=== PATIENT | female | born 1940 | race Caucasian/White ===

== ENCOUNTER → 2016-09-24 | Outpatient (CLI) | payer MEDICARE, OTHER ==
[~2016-09-24] MED LIST: VALS40TA2 PO
--- NOTE | 2016-09-24 16:53 | RADRPT ---
PROCEDURE: Right knee radiographs. CLINICAL INDICATION: Right knee pain. TECHNIQUE: Three views. Weight bearing. Frontal, lateral, and patellar view. COMPARISON: None. FINDINGS: There is no fracture or dislocation. The soft tissues are normal. There are moderate degenerative changes with small osteophytes and lateral joint compartment narrowi ng. There is no deformity. There is patella nawaf. There is no lytic or blastic lesion. There is no radiopaque foreign body. IMPRESSION: 1. Moderate degenerative change. 2. Patella nawaf. 3. Otherwise unremarkable study. RPTAT: QQ .Galdino Scott MD, MD Date Time Electronically viewed and signed by .Galdino Scott MD, on 09/24/2016 16:53 .R/
--- NOTE | 2016-09-25 02:44 | HKNOTE ---
DATE OF SERVICE: 09/24/2016 NEW CONDITION MAIN COMPLAINT: Pain in the right knee. HISTORY OF MAIN COMPLAINT: The patient is a 76-year-old female who has had pain in her right knee f or several years. She has been diagnosed as having severe arthritis of the right knee and has been told that she will need to have a knee replacement operation. She underwent a right total hip replacement by me in 2013. She is extremely pleased with the result s of the surgery. The patient has had multiple cortisone injections into the knee in the past. PRESENT COMPLAINTS: The knee does not feel unstable. Occasionally, it seems to lock when she is in bed at night. There is no swelling. On a level surface, she cannot walk more than about 2 blocks without stopping. She does not use a walking aid (too vain). She limps some of the time. She is u nable to clip her toenails on her right foot. PAST ORTHOPEDIC HISTORY: PREVIOUS ORTHOPEDIC OPERATION: Right total hip replacement, 2013, perfect result. PRIOR CORTISONE INTAKE: Four cortisone injections into her right knee in total so far. ALCOHOL INTAKE: One alcoholic beverage a day. OTHER JOINT PROBLEMS: Right elbow pain. BLOOD TESTS FOR ARTHRITIS: None. PRIOR INJURIES TO HIPS OR KNEES: None. 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 PAST SURGICAL HISTORY: 1. Right hip replacement by Dr. Leo, 2013. 2. Appendectomy in 1956. 3. Benign cyst removed from the left breast, 1975. 4. Cervical cone, 1973. PAST MEDICAL HISTORY: 1. Hypertension. 2. Brain aneurysm. 3. Acid reflux. 4. Mini stroke x1. ALLERGIES: 1. SULFA. 2. BACTRIM UPSET HER STOMACH. MEDICATIONS: 1. Valsartan 80 mg a day for hypertension. 2. Myrbetriq 50 mg once a day for incontinence. 3. Heal and Smooth 3 times a day for arthritis. 4. Omeprazole intermittently for acid reflux. FAMILY HISTORY: Father at 64 from heart problems. Mother at 76 from cancer. SYSTEMS REVIEW: Age related failing vision. Heartburn. History of cancer of the cervix of the [facility] at the age of 25. Gait disturbance. Right knee feels "wobbly". Hypertension, mini stroke, sli ght cardiac murmur, hemorrhoids. HABITS: The patient smoked from 15 to 40 years. She has not smoked in 36 years. Alcohol intake 1 per day. PRIMARY CARE PHYSICIAN: Dr. Chappell, [facility]. PHYSICAL EXAMINATION: GENERAL: A youthful and fit-looking 76-year-old female. She walks without a walking aid. She has a slight limp. VITAL SIGNS: Height 5 feet 6 inches, weight refused to say, blood pressure 135/65, temperature 98.0 . HIPS: Both hips have full range of motion without pain. No tenderness anywhere around either hip. RIGHT KNEE: The right knee shows valgus alignment. Active and passive extension is 0 degrees. Act casey and passive flexion is 105 degrees (painful). The medial and lateral collateral ligaments and c ruciate ligaments are intact. Natalie test is negative. There is no tenderness, scarring, or cysts . 2+ effusion, 6+ crepitus in the knee and the patella. The patella tracks normally. There is no tenderness on the articular surface of the patella or in the patellar groove. The Q angle is normal . IMAGING: Plain x-rays of the right knee obtained today at the [facility] were re viewed (3 views). These show severe tmor-tb-rbgu degenerative osteoarthritis affecting mainly the l ateral compartment and patellofemoral joint. Varus alignment. Moderate osteoporosis. DIAGNOSES: 1. Severe symptomatic degenerative osteoarthritis of the right knee. 2. Status post right total hip replacement. 3. Hypertension. 4. Acid reflux. 5. History of cervical cancer. 6. ALLERGIC TO SULFA AND BACTRIM. MANAGEMENT: The patient is advised that sooner or later she will need to have a right knee replacem ent operation. We should at least try another cortisone injection. She has not had a cortisone inj ection into the knee for more than a year. In any case, she is going on a vacation to [place] in a w [place]'s time. I did not spend any time discussing knee replacement surgery with her. Under sterile conditions, given injection of 2 mL of Kenalog and 6 mL of 2% lidocaine into the knee. She will decide after she gets back from [place] whether or not the cortisone has given her much re lief. Dictated By: WILLOW GONZALEZ/TRENT Conf#: [id number] [facility]#: [id number]
== END | disposition home or self-care (01) ==
LOC: HKI 15:33
DX: M17.11 Unilateral primary osteoarthritis, right knee (principal); Z96.641 Presence of right artificial hip joint; I10 Essential (primary) hypertension; K21.9 Gastro-esophageal reflux disease without esophagitis; Z85.41 Personal history of malignant neoplasm of cervix uteri; Z88.2 Allergy status to sulfonamides
CPT/HCPCS: 20610; 73562; G0463

== ENCOUNTER → 2016-10-22 | Outpatient (CLI) | payer MEDICARE, OTHER ==
[~2016-10-22] MED LIST changes: +ATOR10TA65 PO; +MIRA50TA PO; +VALS80TA2 PO
--- NOTE | 2016-10-22 18:24 | HKNOTE ---
DATE OF SERVICE: 10/22/2016 The patient comes in for preoperative evaluation. She is scheduled to have a right total knee repla cement on 10/27/2016. Seen on 10/22/2016, scheduled for total knee replacement on 10/27/2016. Has been cleared for surgery by Dr. Jamison Hernadez. She has not given any blood for autotransfusio n. She understands the risks associated with using hospital blood. She is agreeable to using [facility] blood if needed. Numerous questions were asked and answered. Note that she has previously undergone a hip replacement performed by me. The surgery was totally u neventful, and there were no complications of any kind, and she currently maintains totally satisfie d with the result of her hip surgery. Dictated By: WILLOW GONZALEZ/TRENT Conf#: [id number] DID#: [id number]
== END | disposition home or self-care (01) ==
LOC: HKI 14:36
DX: Z01.818 Encounter for other preprocedural examination (principal); M17.11 Unilateral primary osteoarthritis, right knee
CPT/HCPCS: G0463

== ENCOUNTER 2016-10-27 05:30 | Inpatient (IN) | payer MEDICARE, OTHER ==
--- NOTE | 2016-10-26 09:16 | PREOPHP ---
DATE OF ADMISSION: 10/27/2016 PREOPERATIVE INTERNAL MEDICINE CONSULTATION MEDICAL HISTORY AND PHYSICAL: Patient to have surgery with Dr. Harlan Leo on 10/27/2016. REASON FOR CONSULTATION: Consultation requested by Dr. Harlan Leo for medical evaluation and clearance of a 76-year-old woman about to have surgery. Thank you, Dr. Leo, for allowing us to participate in the care of this patient. HISTORY OF PRESENT ILLNESS: Dimple Guajardo is a 76-year-old woman with issues with her joints, in particular her right knee at this particular point in time. She is currently being admitted for correction of the above problem. She has had a total hip replacement on the right side as well, had appendectomy and has had a cone biopsy of the cervix and had a benign lump removed from one of her breasts. Other than that, she has been relatively healthy, She had a mild mini stroke with no obvious residual.,She is currently being treated for the followin. Chronic bladder issues. 2. Hypertension. 3. Hyperlipidemia. MEDICATIONS: She is currently taking the following medications: 1. Myrbetriq 50 mg a day. 2. Baby aspirin 81 mg, which she has stopped. 3. Diovan 80 mg a day. 4. Atorvastatin 10 mg a day. ALLERGIES: SHE IS ALLERGIC TO SULFA and SOME ENVIRONMENTAL ALLERGIES WELL. GENERAL HEALTH: Has been good. SOCIAL HISTORY: The patient is , has no children. She does not smoke, quit 35 years ago. Alcohol socially. Does drink tea, no coffee and has no difficulty sleeping at night. FAMILY HISTORY: Father at age 67 of an [place]. Mother in her 70s, lung cancer , one brother has had coronary artery bypass surgery. There is a family history of heart and cancer, no diabetes, hypertension, stroke or thyroid issues to her knowledge. REVIEW OF SYSTEMS HEENT: Periodic sinus headaches. CARDIORESPIRATORY: Denies any chest pain or shortness of breath. GASTROINTESTINAL: No melena or hematemesis. GENITOURINARY: No urgency or frequency. GYNECOLOGIC: Up to date her with her information resource consultant, Dr. Ulysses Molina, post- menopause. MUSCULOSKELETAL: Positive for right knee pain. NEUROPSYCHIATRIC: Unremarkable. GENERAL HEALTH: As above. PHYSICAL EXAMINATION: VITAL SIGNS: The patient's blood pressure was 130/70, pulse was 80 and regular , respirations were 18, temperature 98, height 66 inches, weight 178 pounds. GENERAL: The patient was noted to be a well-developed, well-nourished female, alert and cooperative, in no apparent acute distress, oriented to time, place, and person. HEAD, EARS, EYES, NOSE AND THROAT: Head was atraumatic. Eyes: Pupils were equal, reactive to light and accommodation. Fundi were benign. Tympanic membranes were unremarkable. Nose was negative. Mouth was unremarkable. Fair oral hygiene was present. NECK: Supple without any rigidity. Trachea was midline. Thyroid was unremarkable. Neck veins were flat. Carotid pulses were equal. No bruits were heard. BACK: Unremarkable. CHEST: Symmetrical. BREASTS AND AXILLARY: No obvious masses. A full exam was not done. LUNGS: Clear to percussion and auscultation. HEART: PMI is fifth intercostal space at the midclavicular line. A regular sinus rhythm was noted, no significant murmurs, rubs, or gallops being elicited. ABDOMEN: Soft, good bowel sounds were noted. No significant organomegaly, masses, or tenderness. GENITALIA: Normal female external genitalia. PELVIC/RECTAL: Per information resource consultant, up to date. EXTREMITIES: Not revealing clubbing, edema or cyanosis. Scar was noted. At the right hip area, a scar from right hip surgery was noted. Peripheral pulses were physiologic. SKIN: Moist and warm without any eruptions. No gross lymphadenopathy was noted. NEUROLOGIC: Grossly intact. IMPRESSION: 1. Degenerative joint disease, right knee, status post total hip replacement on the right. 2. Degenerative joint disease. 3. Hypertension. 4. Hyperlipidemia. 5. Overactive bladder. 6. Stable health. DISCUSSION: Review of laboratory and other data revealed the following: The patient's chemistry panel revealed normal electrolytes. Random glucose was 115 , BUN was 29. However, creatinine was normal at 1. Liver function tests were normal save for mild elevation of alkaline phosphatase with normal liver functions. Serum iron was minimally low at 54, TSH and free T4, CBC, sed rate , UA, PT and PTT were normal as well. The patient's EKG was absolutely normal, as was her chest x-ray. Dr. Leo, I see no contraindication in this patient undergoing current proposed surgery and desired form of anesthesia. I will be happy to follow her along with you during her stay at [facility]. Thank you again, Dr. Leo, for allowing us to participate in the care of this patient. Dictated By: EDY COLLINS/TRENT Conf#: [id number] DID#: [id number] MTDD
[~2016-10-27] VITALS: Ht 167.6 cm; Wt 78.0 kg
[2016-10-27] VITALS (28 sets, daily range): BP systolic 102–135; BP diastolic 46–60; PULSE 68–92; RESP 10–20; Ht 167.6 cm; Wt 78.0 kg
[~2016-10-27 05:30] MED LIST changes: -ATOR10TA65 PO; +BACITRACIN 50000 UNITS INJ IRR ONE; +BUPIVACAINE 0.25%/EPI (SDV) 30 ML INJ INJ ONE; +METHYLENE BLUE 1% 10 ML INJ TOP ONE; -MIRA50TA PO; +POLYMYXIN B 500000 UNIT INJ IRR ONE; +ROPIVACAINE 0.2% 100ML BAG INJ ONE; +TOBRAMYCIN 1.2 GM POWDER TOP ONE; -VALS80TA2 PO; +VANCOMYCIN 1 GM INJ IRR ONE
[2016-10-27] MEDS ORDERED: ONDANSETRON 4 MG INJ IV ONE (06:00)
[2016-10-27] MEDS ORDERED: LACTATED RINGER'S 1,000 ML IV* SCH (06:00)
[2016-10-27] MEDS ORDERED: oxyCODONE (CR) 10 MG TAB [oxyCONTIN] PO ONE (06:00)
[2016-10-27] MEDS ORDERED: TRANEXAMIC ACID IRR SCH ×2 (06:00)
[2016-10-27] MEDS ORDERED: DEXAMETHASONE 4 MG/ML 1 ML INJ IV ONE (06:00)
[2016-10-27] MEDS ORDERED: SOD CHLORIDE 0.9% IVPB ONE (06:00)
[2016-10-27] MEDS ORDERED: TRANEXAMIC ACID IVPB ONE (06:00)
[2016-10-27] MEDS ORDERED: SOD CHLORIDE 0.9% IRR SCH ×2 (06:00)
[2016-10-27] MEDS ORDERED: VANCOMYCIN 1 GM (PMX) 250 ML IVPB ONE (06:00)
[2016-10-27] MEDS ORDERED: LANSOPRAZOLE 30 MG CAP PO ONE (06:00)
[2016-10-27] MEDS ORDERED: ACETAMINOPHEN 1000MG/100ML IV 100 ML IVPB ONE (06:00)
[2016-10-27] MEDS ORDERED: KNEE PAIN COCKTAIL VANCO INJ SCH ×12 (06:00)
[2016-10-27] MEDS ORDERED: LIDOCAINE 2% (SDV) 5 ML INJ ONE (06:20)
[2016-10-27] MEDS ORDERED: PROPOFOL 20 ML ONE (06:21)
[2016-10-27] MEDS ORDERED: NEOSTIGMINE 3 MG/3 ML SYRINGE ONE (06:21)
[2016-10-27] MEDS ORDERED: GLYCOPYRROLATE 0.4 MG INJ ONE (06:21)
[2016-10-27] MEDS ORDERED: FENTAnyl 50 MCG/ML VIAL ONE (06:21)
[2016-10-27] MEDS ORDERED: MIDAZOLAM 1 MG/ML 2 ML INJ ONE (06:21)
[2016-10-27] MEDS ORDERED: ROCURONIUM 50 MG INJ ONE (06:21)
[2016-10-27] MEDS ORDERED: DEXAMETHASONE 4 MG/ML 1 ML INJ ONE (06:21)
[2016-10-27] MEDS ORDERED: LIDOCAINE 2%/EPI 30 ML INJ ONE (06:22)
[2016-10-27] MEDS ORDERED: ONDANSETRON 4 MG INJ ONE (06:22)
[2016-10-27] MEDS ORDERED: OXYCODONE/ACETAMINOPHEN (5/325) TAB PO PRN ×4 (06:30→11:56)
[2016-10-27] MEDS ORDERED: LABETALOL HCL 20MG INJ IV PRN ×2 (06:30→11:57)
[2016-10-27] MEDS ORDERED: MIDAZOLAM 1 MG/ML 2 ML INJ IV PRN ×2 (06:30→12:00)
[2016-10-27] MEDS ORDERED: hydrALAzine 20 MG INJ IV PRN ×2 (06:30→11:58)
[2016-10-27] MEDS ORDERED: HYDROmorphONE (0.2 MG/ML) 10ML SYG IV PRN ×5 (06:30→11:48)
[2016-10-27] MEDS ORDERED: MEPERIDINE 25 MG INJ IV PRN ×2 (06:30→11:59)
[2016-10-27] MEDS ORDERED: ATROPINE 1 MG/10 ML SYRINGE IV PRN (06:30)
[2016-10-27] MEDS ORDERED: ONDANSETRON 4 MG INJ IV PRN ×2 (06:30→11:56)
[2016-10-27] MEDS ORDERED: DIPHENHYDRAMINE 50 MG INJ IV PRN ×2 (06:30→12:00)
[2016-10-27] MEDS ORDERED: EPHEDrine SULFATE 50 MG/5 ML SYG IV PRN ×2 (06:30→11:58)
[2016-10-27] MEDS ORDERED: morphine (1 MG/ML) 10ML SYRINGE IV PRN ×6 (06:30→11:47)
[2016-10-27] MEDS ORDERED: FENTAnyl 50 MCG/ML VIAL IV PRN ×4 (06:30→11:54)
[2016-10-27] MEDS ORDERED: ATOR10TA65 PO (06:52)
[2016-10-27] MEDS ORDERED: MIRA50TA PO (06:52)
[2016-10-27] MEDS ORDERED: VALS80TA2 PO (06:52)
[2016-10-27] MEDS ORDERED: SUCCINYLCHOLINE CHLORIDE 100 MG/5 ML SYG IV ONE (07:23)
[2016-10-27] MEDS ORDERED: OCULAR LUBRICANT 3.5 GM OPH OINT ONE (07:34)
[2016-10-27] MEDS ORDERED: TOBRAMYCIN 1.2 GM POWDER ONE ×2 (07:56→10:19)
[2016-10-27] MEDS ORDERED: FUROSEMIDE 20 MG INJ ONE (10:55)
--- NOTE | 2016-10-27 11:24 | HPN ---
Date/Time of Note Date/Time of Note DATE: 10/27/16 TIME: 11:24 Interval H&P Admission Note Pt. seen H&P reviewed: No system changes BE SERNA PA-C Oct 27, 2016 11:24
[2016-10-27] MEDS ORDERED: COUMADIN NOTE XX SCH (11:30)
[2016-10-27] MEDS ORDERED: DOCUSATE SODIUM 100 MG CAP PO ONE (11:30)
[2016-10-27] MEDS ORDERED: oxyCODONE 5 MG TAB PO PRN (11:30)
[2016-10-27] MEDS ORDERED: SENNA/DOCUSATE NA (8.6MG/50MG) TAB PO PRN (11:30)
[2016-10-27] MEDS ORDERED: MEPERIDINE 10 MG/ML 30 ML PCA IV PRN (11:30)
[2016-10-27] MEDS ORDERED: HYDROmorphONE 0.2 MG/ML PCA IV PRN (11:30)
[2016-10-27] MEDS ORDERED: ASPIRIN (EC) 325 MG TAB PO ONE (11:30)
[2016-10-27] MEDS ORDERED: MAGNESIUM HYDROXIDE 30ML CUP PO PRN (11:30)
[2016-10-27] MEDS ORDERED: BETHANECHOL 25 MG TAB PO PRN (11:30)
[2016-10-27] MEDS ORDERED: DIPHENHYDRAMINE 50 MG INJ IM PRN (11:30)
[2016-10-27] MEDS ORDERED: BISACODYL 10 MG SUPP PR PRN (11:30)
[2016-10-27] MEDS ORDERED: NA PHOSPHATE/BIPHOS 133 ML ENEMA PR PRN (11:30)
[2016-10-27] MEDS ORDERED: NALOXONE (0.4 MG/ML) INJ IV PRN (11:30)
[2016-10-27] MEDS ORDERED: HYDROmorphONE (0.2 MG/ML) 10ML SYG IV ONE (11:45)
[2016-10-27] MEDS: ACETAMINOPHEN 1000MG/100ML IV 100 ML IVPB SCH ×2 (12:10→19:29)
[2016-10-27] MEDS: ONDANSETRON 4 MG INJ IV SCH ×3 (12:11→23:13)
[2016-10-27] MEDS: HYDROmorphONE (0.2 MG/ML) 10ML SYG IV PRN ×2 (12:24→12:46)
[2016-10-27] MEDS: CEFAZOLIN 1 GM/50 ML (PMX) 50 ML IVPB SCH ×2 (12:31→18:57)
--- NOTE | 2016-10-27 12:58 | OPR ---
DATE OF OPERATION: 10/27/2016 SURGEON: Herbert. Felipa MD COCONUT COOKER: ISMÓN Jmail. ANESTHESIOLOGIST: Dr. Cook. PREOPERATIVE DIAGNOSIS: Severe degenerative osteoarthritis of the right knee. POSTOPERATIVE DIAGNOSIS: Severe degenerative osteoarthritis of the right knee. OPERATION PERFORMED: Right total knee replacement (arthroplasty of the knee, condylar plateau media l and lateral compartments with patella resurfacing, CPT 27378). FINDINGS AT SURGERY: The patient was found to have extremely severe arthritis of the lateral compar tment of the knee. There was a very deep indentation of the lateral tibial plateau. There was mini mal normal articular cartilage visible anywhere. JUSTIFICATION FOR SURGERY: The knee was found to have end-stage osteoarthritis. The patient is a v mara active 76-year-old whose lifestyle is markedly affected by the arthritic knee. An extensive cou rse of conservative care has been tried prior to embarking on the knee replacement operation. There can be no reasonable expectation that any further conservative treatment will make any improvement to this patient's pain level and lifestyle. The risks and complications of the surgery were discuss ed with the patient at the preoperative visit as well as the risks and possible complications of blo od transfusion using hospital blood. The patient is agreeable to using hospital blood if needed. DESCRIPTION OF PROCEDURE: The patient was given intravenous antibiotics 1 hour prior to surgery. A n epidural anesthetic was initiated in the ICU holding area. The patient was taken to the operating room and given a light general anesthetic. The leg, foot, and ankle were prepared and draped in th e usual sterile fashion. The center of the ankle was marked at the midpoint between the 2 malleoli with a sterile marking pen. A tourniquet around the thigh was inflated to 225 mmHg after the leg frank d been exsanguinated using an Esmarch bandage. The tourniquet was inflated at the initiation of pro cedure for a short period and was then again reinflated at the time of cementing the components part s. The total tourniquet time was 56 minutes. A longitudinal incision was made over the anterior aspect of the knee. The incision extended from t he tibial tubercle to a point just above the patella. The medial capsule was exposed by sharp and b luis dissection, and was incised 1/4 inch medial to the patella. A marking stitch was set on each s agapito of the incision at the midpoint of the capsule so as to enable accurate reapproximation at the e nd of the operation. A vastus split was made in the vastus medialis extending from the superior duncan e of the patella for approximately 5 cm between the line with the muscle fibers. The ends of the mu scle split at the patella were marked with a marking stitch on each side for later accurate reapprox imation. The patella was reflected laterally and osteophytes around the rim of the patella were rem slava. Osteophytes along the lateral femoral condyle were removed so as to facilitate lateral reflec tion of the patella. Posteromedial osteophytes were removed on the lateral side as well, so as to f ree up the lateral collateral ligament. Medial femoral osteophytes and posteromedial femoral osteop hytes were also removed at this time. This allowed for the knee to be brought into a more normal al ignment. A segment of bone was cut from the articular surface of the patella using a caliper to det ermine the exact thickness to be removed. The remaining thickness of the patella was 16.5 mm. The knee was flexed, and the patella was displaced laterally without eversion. Osteophytes in the femor al notch were removed. The remnants of the medial and lateral menisci were excised and the cruciate ligaments were excised. The medial collateral ligament was elevated as an osteo-periosteal flap fr om the proximal tibia. The distal end of the medial collateral ligament remained attached to the ti ed throughout the operation. The tibia was retracted forward with Hohmann retractor, inserted post erior to the midpoint of the proximal tibia. The OrthAlign jig was now set in place in such a way a s to align longitudinally with the anterior tibial spine, with the junction of the middle and medial 2/3 of the patella tendon, and with the posterior intercondylar eminence of the tibia. An AP and l ateral x-ray was obtained with the alignment jig in place. This showed that the alignment was satis factory after some slight adjustments were made. The posterior slope of the tibia was set at 6 degr ees. The tibial cutting block was attached to the proximal tibia with 2 Steinmann pins. An externa l alignment justyna was placed on the cutting block to confirm the alignment of the cutting block. An A ngel Wing feeler gauge was now placed on the superior aspect of the cutting block to further confirm the posterior slope of the tibia and the depth of the cut to be made. An oscillating saw was used to remove an appropriate amount of bone from the proximal tibia with the healthy side being used to measure the cutting depth. The lateral femoral condyle of the distal femur was measured to determin e the appropriate size for the femoral component. The anterior condyle of the femur was partially r emoved with a rongeur. A medium-sized cutting block was attached to the distal femur with 2 Steinma nn pins through the pin holes in the block. The external alignment jig of this cutting block was li colin up with the anterior surface of the femur and a central intercondylar hole for the intramedullar y justyna was drilled through the hole in the alignment block. The block was removed. A long Waterpik nozzle was used to flush fat from the intramedullary canal. The appropriately sized cutting block w as now attached to the femur by means of an intramedullary justyna. The linking guide was inserted into the slot in the base of the femoral cutting block with the knee set at 90 degrees of flexion and wi th the linking guide set flush with the proximal tibial cut in order to set the appropriate rotation al alignment on the femoral cutting block. Ligament balance was checked at this point and was found to be very satisfactory. Once the rotational alignment had been determined, and the ligaments foun d to be balanced, the femoral cutting block was secured to the distal femur with 2 Steinmann pins. The anterior and posterior cuts of the distal femur were made off the femoral cutting block. The cu tting block was removed and a spacer block was used to measure the flexion gap which was found to be 12.5 mm. The same spacer block size without the femoral element was used with the leg in extension to determi ne the amount of distal femur to be removed in the transverse plane. A 5-degree distal cutting bloc k was now set on the femoral intramedullary justyna, and the justyna was inserted into the intramedullary ca nal. The appropriate amount of bone to be removed was determined. The femoral cutting block was pi nned to the anterior surface of the femur with 2 Steinmann pins. The appropriate amount of bone was resected off the distal femur to give an extension gap equal to the thickness of the flexion gap. The cut needed to be repeated after initial cut in order to produce an extension gap the same size a s the flexion gap. By using the appropriate cutting blocks, the rest of the femoral cuts were made. The femoral trial component was installed and was found to fit perfectly. The femoral trial component was removed. T he proximal tibia was sized, and the appropriate tibial tray selected. The central fixation hole in the tibia was made using the tibial tray template and the appropriate instruments. The femoral and tibial trials and the trial tibial insert were installed, and the patella was prepared to accept th e 32 mm patellar dome. The trial components were all removed. The tourniquet was inflated. Soft t issues around the knee, especially the posterior capsule, were injected with a mixture of Naropin, T oradol, morphine, and clonidine. The cut surfaces of the bones were cleaned with pulsatile Water Je t lavage and thoroughly dried. Sclerotic bone surfaces were drilled with a 1/8-inch drill. The tib ial trial component was installed with methyl methacrylate cement followed by the femoral component and finally the patellar component. Cement was used on all 3 components. The cement was finger pac ked into the cut surfaces of the bone and pressurized with a rubber dam in order to get good interdi gitation of the cement into the bone. A lateral x-ray of the knee was obtained while the cement was hardening with the anticipated appropriate spacer trial in place. Once the cement was hard, all ex traneous cement was removed. The cut edges of the medial capsule were held together at the midpoint with a towel clip, and the knee was put through a full range of motion. The patella was found to t rack satisfactorily. A lateral release was not required. At this point, the patella was found to t rack very well in the patellar groove of the femoral component. The knee was frequently irrigated with normal saline containing antibiotics with pulsatile lavage th roughout the entire operation as a prophylactic measure against infection. Once the cement was hard , the tourniquet was released. Bleeding points were cauterized. The total tourniquet time was 56 m inutes. The patient's vital signs remained stable throughout the operation. The permanent rotating bearing was installed. Superficial and deep Hemovac drains were set in place . The wound was closed using interrupted Vicryl on the capsule with FiberWire used at strategic poi nts such as the attachment of the distal ends of the vastus medialis at the split, and the tibial te ndon was also attached to the osteo-periosteal flap with FiberWire. The rest of the medial capsule was closed with interrupted Vicryl. A subcuticular stitch was inserted and cristina were used on the skin. The usual sterile dressings were applied. A Dominick-Gaytan compression dressing was applied a fter a sterile cooling pad had been set in place against the deep tissues by sterile cast padding. The patient's condition at the end of the procedure was satisfactory. Vital signs remained stable t hroughout the operation. The patient returned to the recovery room in stable condition. X-rays wer e obtained in the recovery room. Calf pumps were applied to both legs in the operating room. There were no problems or complications as far as we know. The sponge and instrument counts were correct . COMPONENT INFORMATION: KNEE IMPLANT TYPE: LCS. FEMORAL COMPONENT SIZE: Standard plus. TIBIAL COMPONENT SIZE: 2.5. PATELLAR COMPONENT SIZE: 32 mm patellar dome plastic insert rotating platform LCS 12.5 mm standard plus posterior stabilized. 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 TOTAL TOURNIQUET TIME: 56 minutes. TOTAL BLOOD LOSS: Less than 150 mL. Dictated By: WILLOW GONZALEZ/TRENT Conf#: [id number] DID#: [id number]
--- NOTE | 2016-10-27 13:29 | CONS ---
DATE OF ADMISSION: 10/27/2016 DATE OF CONSULTATION: 10/27/2016 POSTOPERATIVE CONSULT FOLLOWUP The patient had surgery with Dr. Harlan Leo on 10/27/2016. The patient is seen in recovery room postoperatively, arousable, recognized me, knew my name, quite alert and complaining of some pain in her knee. PHYSICAL EXAMINATION: VITAL SIGNS: Revealed the following: Blood pressure was 112/49, pulse was 80 and regular, respirat ions were 18, temperature was 98.2, O2 saturation 97% on room air. HEENT: Unremarkable. LUNGS: Clear. HEART: Revealed a regular rhythm. ABDOMEN: Unremarkable. IMPRESSION: 1. Status post total knee replacement on the right for degenerative joint disease. 2. Degenerative joint disease. 3. Hypertension. 4. Hyperlipidemia. 5. Overactive bladder. DISCUSSION: The patient's vital signs are stable postoperatively. The patient's awaiting room assi gnment. We will continue her preoperative medications at this point. We will renew her medicines s tarting tomorrow. Condition postoperative is stable. Thank you again, Dr. Leo, for allowing us to participate in the care of this patient. Dictated By: EDY POWERS MD SS/NTS Conf#: [id number] DID#: [id number]
--- NOTE | 2016-10-27 14:08 | RADRPT ---
PROCEDURE: XR Knee. CLINICAL INDICATION: Status post right knee replacement TECHNIQUE: AP and lateral view of the right knee were obtained. The images reviewed on a PACS wor kstation. COMPARISON: September 24, 2016 FINDINGS: Complete right knee replacement is identified. Prosthetic components are in appropriate position an d alignment. No fractures or destructive lesions are observed. Surgical drains are seen in the knee . Soft tissue air is procedural in nature. IMPRESSION: Status post right knee replacement. Prosthetic components are in appropriate position and alignment . RPTAT: AA .Juwan Montes MD, MD Date Time Electronically viewed and signed by .Juwan Montes MD, on 10/27/2016 14:07 .P/
[2016-10-27] MEDS ORDERED: TRANEXAMIC ACID 780 MG in SOD CHLORIDE 0.9% 100 ML IVPB ONE ×2 (14:30→17:30)
--- NOTE | 2016-10-27 14:34 | RADRPT ---
PROCEDURE: XR Knee 1 Views. CLINICAL INDICATION: Right knee pain. TECHNIQUE: Troponin lateral view of the right knee was obtained. The images reviewed on a PACS [email or web address]. COMPARISON: September 24, 2016 FINDINGS: Intraoperative prosthetic components of the right knee replacement appear in grossly appropriate pos ition. No destructive bony lesions are observed. IMPRESSION: Intraoperative right knee x-ray. Intraoperative components of the right knee replacement in grossly appropriate position. Please see procedure note for details. RPTAT: AA .Juwan Montes MD, Date Time Electronically viewed and signed by .Juwan Montes MD, on 10/27/2016 14:33 .P/
[2016-10-27] MEDS: DEXTROSE 5%-LR 1,000 ML IV SCH (16:21)
[2016-10-27] MEDS ORDERED: ARTIFICIAL TEARS 15 ML OPH BOTH EYES PRN (21:00)
[2016-10-27] MEDS: ATORVASTATIN 10 MG TAB PO SCH (21:00)
[2016-10-27] MEDS: OLOPATADINE 0.1% 5 ML OPH BOTH EYES SCH (21:12)
[2016-10-28] MEDS: DEXTROSE 5%-LR 1,000 ML IV SCH ×2 (00:03→11:10)
[2016-10-28] MEDS: oxyCODONE 5 MG TAB PO PRN ×3 (00:11→21:57)
[2016-10-28] MEDS: ZOLPIDEM 5 MG TAB PO PRN ×2 (02:13→23:50)
[2016-10-28] MEDS: ACETAMINOPHEN 1000MG/100ML IV 100 ML IVPB SCH ×3 (03:19→18:31)
[2016-10-28] MEDS: CEFAZOLIN 1 GM/50 ML (PMX) 50 ML IVPB SCH (04:08)
[2016-10-28] MEDS: ONDANSETRON 4 MG INJ IV SCH (05:30)
[2016-10-28] MEDS ORDERED: KETOROLAC 15 MG INJ INJ PRN (06:00)
[2016-10-28] MEDS ORDERED: BUPIVACAINE 0.25%/EPI (SDV) 30 ML INJ INJ PRN (06:00)
[2016-10-28 06:03] LABS: ADD SCAN DIFF NO
[2016-10-28 06:16] LABS: ABNORMAL IP MESSAGE 1; BASOPHILS % 0.1 % (0.0-2.0); HEMATOCRIT 32.3 % (37.0-47.0); HEMOGLOBIN 10.5 g/dl (12.0-16.0); LYMPHOCYTES % 7.4 % (15.0-51.0); MEAN CORPUSCULAR HEMOGLOBIN 28.2 pg (29.0-33.0); MEAN CORPUSCULAR HGB CONC 32.5 g/dl (32.0-37.0); MEAN CORPUSCULAR VOLUME 86.6 fl (82.0-101.0); MEAN PLATELET VOLUME 13.5 fl (7.4-10.4); MONOCYTE # 1.2 10^3/ul (0.3-0.9); MONOCYTES % 8.6 % (0.0-11.0); NEUTROPHIL # 11.6 10^3/ul (1.6-7.5); NEUTROPHILS % 83.4 % (39.0-77.0); PLATELET COUNT 176 10^3/UL (140-415); RED BLOOD COUNT 3.73 10^6/ul (4.20-5.40); RED CELL DISTRIBUTION WIDTH 15.5 % (11.5-14.5); WHITE BLOOD COUNT 13.9 10^3/ul (4.8-10.8)
[2016-10-28] MEDS: DEXAMETHASONE 4 MG/ML 1 ML INJ IV SCH (06:37)
[2016-10-28 06:49] LABS: ALBUMIN 3.4 g/dl (3.3-4.9); ALBUMIN/GLOBULIN RATIO 1.7; BILIRUBIN,INDIRECT 0.1 mg/dl (0-1.1); BILIRUBIN,TOTAL 0.1 mg/dl (0.2-1.3); CALCIUM 8.9 mg/dl (8.4-10.2); CREATININE 1.21 mg/dl (0.44-1.00); POTASSIUM 4.2 mmol/L (3.5-5.1); TOTAL PROTEIN 5.4 g/dl (6.1-8.1)
[2016-10-28 07:03] LABS: ADD UMIC NO; UR ASCORBIC ACID NEGATIVE (NEGATIVE); UR BILIRUBIN (Dip) NEGATIVE (NEGATIVE); UR BLOOD (Dip) NEGATIVE (NEGATIVE); UR CLARITY CLEAR (CLEAR); UR COLOR STRAW (YELLOW); UR GLUCOSE (Dip) NEGATIVE (NEGATIVE); UR KETONES (Dip) NEGATIVE (NEGATIVE); UR LEUKOCYTE ESTERASE (Dip) NEGATIVE Leu/ul (NEGATIVE); UR NITRITE (Dip) NEGATIVE (NEGATIVE); UR SPECIFIC GRAVITY (Dip) 1.014 (1.003-1.030); UR TOTAL PROTEIN (Dip) NEGATIVE (NEGATIVE); UR UROBILINOGEN (Dip) NEGATIVE (NEGATIVE)
[2016-10-28 08:11] VITALS: BP 132/60; RESP 20
--- NOTE | 2016-10-28 08:20 | PN ---
Date/Time of Note Date/Time of Note DATE: 10/28/16 TIME: 08:18 Assessment/Plan VTE Prophylaxis VTE Prophylaxis Intervention: ambulation, SCD's, other (Aspirin 325 mg twice daily) Lines/Catheters IV Catheter Type (from Nrs): Peripheral IV Barillas in Place (from Nrs): Yes Assessment/Plan Assessment/Plan -Hemovac Removed Today. 300 cc output. -Pain Cocktail Given -Pain Meds as needed -Dress change performed today -OOB with PT -ASA/SCDs for DVT Prophylaxis -Continue monitoring with Internal Medicine -Patient Stable Will send communication to nurse to monitor suspected eye allergy. Subjective 24 Hr Interval Summary 76-year-old female postop day 1 status post right total knee arthroplasty. No physical therapy performed tomorrow as patient was late with being transferred to the floor. Has complaints of minor aches primarily to the lateral side of the right knee. Denies any chest pain/tightness, shortness of breath or calf pain. Lying comfortably in bed today. She mentions that she had blurry vision yesterday evening with feeling of "sandpaper" to the eyelids. She used Eye drops from her home which she does not mention the name but states that blurry vision has improved and sandpaper feeling/pruritis is improving. Exam/Review of Systems Vital Signs Vitals Vital Signs Date Time Temp Pulse Resp B/P Pulse Ox O2 Delivery O2 Flow Rate FiO2 10/28/16 08:11 97.7 63 20 132/60 98 10/27/16 19:35 Room Air Intake and Output 10/27/16 10/27/16 10/28/16 15:00 23:00 07:00 Intake Total 577.8 ml 1690 ml Output Total 600 ml 1300 ml 1580 ml Balance -600 ml -722.2 ml 110 ml Exam Free Text/Dictation -Hemovac: Intact. 300 cc output -Pain Cocktail Drains: Intact -Incision: Clean, Dry and Intact without any redness or drainage -5/5 Tibialis Anterior, EHL Gastrocnemius/Soleus and Peroneals -Patient able to flex the knee up to 80 today. About 5 lag from full extension. -Normal Sensation -Palpable DP/PT, Capillary Refill <2 secs -No Distal Edema -Negative Cherelle Sign/No calf pain -Toes Freely Movable Constitutional: alert, oriented, well developed Results Result Diagram: 6/21/17 0425 10/28/16 0425 BE SERNA PA-C Oct 28, 2016 08:20
[2016-10-28] MEDS: OLOPATADINE 0.1% 5 ML OPH BOTH EYES SCH ×2 (08:33→20:56)
[2016-10-28] MEDS: CELECOXIB 200 MG CAP PO SCH ×2 (08:34→20:57)
[2016-10-28] MEDS: ASPIRIN (EC) 325 MG TAB PO SCH ×2 (08:34→20:57)
[2016-10-28] MEDS: DOCUSATE SODIUM 100 MG CAP PO SCH ×2 (08:34→20:57)
[2016-10-28] MEDS: FERROUS FUMARATE (SR) TAB PO SCH ×2 (08:34→20:56)
[2016-10-28] MEDS: VALSARTAN 80 MG TAB PO SCH (08:35)
--- NOTE | 2016-10-28 09:27 | PN ---
DATE: 10/28/2016 TIME: Approximately 7:40 a.m. SUBJECTIVE: The patient was seen in her room, quite alert, complaining of pain overnight. Her knee did not ambulate or get out of bed yesterday postoperatively, but otherwise has had no complaints. OBJECTIVE: VITAL SIGNS: Blood pressure, last one in the evening 110/55, temperature 98.2, pulse 82, O2 saturat ion 97% on room air, respiratory rate 18. HEENT: Unremarkable. LUNGS: Clear. HEART: Reveals a regular rhythm. ABDOMEN: Slight bloating, otherwise unremarkable. IMPRESSION: 1. Status post total knee replacement on the right side for degenerative joint disease. 2. Hypertension. 3. Hyperlipidemia. 4. Stable postop. DISCUSSION: Review of laboratory and other data revealed the following: The patient's CBC revealed a white count of 13.9, hematocrit of 32.3, hemoglobin of 10.5. The patient's chemistry panel revea led minimally lower sodium at 134, BUN and creatinine is slightly high, glucose, calcium, and liver function tests unremarkable. Total protein is somewhat low. DISCUSSION AND PLAN: Per Dr. Leo, hopefully the patient will get therapy and start ambulatin g today with physical therapy. The rest of her preoperative medicines have been continued. CONDITION: Postoperatively is stable. Thank you again, Dr. Leo, for allowing us to participate in the care of this patient. Dictated By: EDY COLLINS/TRENT Conf#: [id number] DID#: [id number]
[2016-10-28] MEDS ORDERED: PATIENT'S OWN MEDICATION PO SCH (11:00)
[2016-10-28] MEDS: MYRBETRIQ 50 MG PO SCH (13:26)
[2016-10-28] MEDS ORDERED: CEPASTAT LOZENGE MT PRN (17:30)
[2016-10-28 19:32] VITALS: BP_SYST 101; BP_SYST 142; BP_DIAS 63; RESP 22
[2016-10-28] MEDS: ATORVASTATIN 10 MG TAB PO SCH (20:55)
[2016-10-29] MEDS: DEXTROSE 5%-LR 1,000 ML IV SCH ×2 (00:55→13:25)
[2016-10-29] MEDS: ACETAMINOPHEN 1000MG/100ML IV 100 ML IVPB SCH (03:29)
[2016-10-29 04:49] LABS: ADD SCAN DIFF NO
[2016-10-29 04:52] LABS: BASOPHIL # 0.1 10^3/ul (0.0-0.1); BASOPHILS % 0.4 % (0.0-2.0); EOSINOPHILS # 0.2 10^3/ul (0.0-0.5); EOSINOPHILS % 1.3 % (0.0-7.0); HEMATOCRIT 31.5 % (37.0-47.0); HEMOGLOBIN 10.2 g/dl (12.0-16.0); LYMPHOCYTES # 2.6 10^3/ul (0.8-2.9); MEAN CORPUSCULAR HEMOGLOBIN 28.3 pg (29.0-33.0); MEAN CORPUSCULAR HGB CONC 32.4 g/dl (32.0-37.0); MEAN CORPUSCULAR VOLUME 87.3 fl (82.0-101.0); MONOCYTE # 1.5 10^3/ul (0.3-0.9); NEUTROPHIL # 9.2 10^3/ul (1.6-7.5); NEUTROPHILS % 67.9 % (39.0-77.0); PLATELET COUNT 167 10^3/UL (140-415); RED BLOOD COUNT 3.61 10^6/ul (4.20-5.40); RED CELL DISTRIBUTION WIDTH 15.7 % (11.5-14.5); WHITE BLOOD COUNT 13.6 10^3/ul (4.8-10.8)
[2016-10-29] MEDS: PANTOPRAZOLE (EC) 40 MG TAB PO SCH (06:23)
[2016-10-29] MEDS: DEXAMETHASONE 4 MG/ML 1 ML INJ IV SCH (06:23)
--- NOTE | 2016-10-29 07:51 | PN ---
Date/Time of Note Date/Time of Note DATE: 10/29/16 TIME: 07:49 Assessment/Plan VTE Prophylaxis VTE Prophylaxis Intervention: ambulation, SCD's, other (Aspirin 325 mg twice daily) Lines/Catheters IV Catheter Type (from Nrsg): Saline Lock Barillas in Place (from Nrsg): No Assessment/Plan Assessment/Plan -Pain Cocktail Given -Pain Meds as needed -Dress change performed today -OOB with PT -ASA/SCDs for DVT Prophylaxis -Continue monitoring with Internal Medicine -Patient Stable -Likely DC home tomorrow No longer having any eye complaints. Subjective 24 Hr Interval Summary 76-year-old female postop day 2 status post right total knee arthroplasty. Initiated physical therapy yesterday walking about 175 feet. Patient states that she experience is minor aches and pains usually with weightbearing or activity. Denies any chest pain/tightness/shortness of breath. Denies any calf pain. Continues to progress well. Constitutional: no complaints Pain Control: well controlled Exam/Review of Systems Vital Signs Vitals Vital Signs Date Time Temp Pulse Resp B/P Pulse Ox O2 Delivery O2 Flow Rate FiO2 10/28/16 19:32 98.2 82 22 101/63 100 10/27/16 19:35 Room Air Intake and Output 10/28/16 10/28/16 10/29/16 15:00 23:00 07:00 Intake Total 500 ml 1240 ml 700 ml Output Total 1000 ml 700 ml Balance 500 ml 240 ml 0 ml Exam Free Text/Dictation -Hemovac: Removed -Pain Cocktail Drains: Intact -Incision: Clean, Dry and Intact without any redness or drainage -5/5 Tibialis Anterior, EHL Gastrocnemius/Soleus and Peroneals -Normal Sensation -Palpable DP/PT, Capillary Refill <2 secs -No Distal Edema -Negative Cherelle Sign/No calf pain -Toes Freely Movable Constitutional: alert, oriented, well developed Results Result Diagram: 10/29/16 0415 10/28/16 0425 BE SERNA PA-C Oct 29, 2016 07:50
[2016-10-29 08:16] VITALS: BP 128/62; RESP 20
--- NOTE | 2016-10-29 08:22 | PN ---
DATE: 10/29/2016 TIME: The patient is seen at approximately 7:35 a.m. on 10/29/2016 SUBJECTIVE: The patient is comfortable. Stated she walked around yesterday, maybe overdid it. Hav ing some discomfort in the hip area, but otherwise doing well. The catheter has been removed. The p atient has no particular complaints. PHYSICAL EXAMINATION: VITAL SIGNS: Last set revealed a blood pressure of 101/63, pulse of 82, respirations 20, temperatur e 98.2, O2 saturation 100%. HEENT: Unremarkable. LUNGS: Clear. HEART: Reveals a regular exam. ABDOMEN: Unremarkable. IMPRESSION: 1. Status post total knee replacement on the right side. 2. Hypertension. 3. Hyperlipidemia. 4. Chronic bladder issues. DISCUSSION: Review of laboratory and other data reveals the following: The patient's CBC reveals h er white count to be elevated, but hemoglobin and hematocrit are relatively stable. Chemistry panel was not done today. Urinalysis was clear, done yesterday. PLAN: Per Dr. Leo, increase ambulation, continue her preoperative medications and hopefully the patient will be ready for discharge tomorrow after ambulating more today. Thank you again, Dr. Leo, for allowing us to participate in the care of this patient. Dictated By: EDY COLLINS/TRENT Conf#: [id number] DID#: [id number]
[2016-10-29] MEDS: OLOPATADINE 0.1% 5 ML OPH BOTH EYES SCH ×2 (09:00→20:42)
[2016-10-29] MEDS: DOCUSATE SODIUM 100 MG CAP PO SCH ×2 (09:18→20:40)
[2016-10-29] MEDS: CELECOXIB 200 MG CAP PO SCH ×2 (09:18→20:39)
[2016-10-29] MEDS: FERROUS FUMARATE (SR) TAB PO SCH ×2 (09:18→20:40)
[2016-10-29] MEDS: VALSARTAN 80 MG TAB PO SCH (09:18)
[2016-10-29] MEDS: ASPIRIN (EC) 325 MG TAB PO SCH ×2 (09:19→20:39)
[2016-10-29] MEDS: MYRBETRIQ 50 MG PO SCH (09:20)
[2016-10-29] MEDS: oxyCODONE 5 MG TAB PO PRN ×4 (09:20→23:07)
[2016-10-29 19:15] VITALS: BP 122/58; RESP 18
[2016-10-29] MEDS: ATORVASTATIN 10 MG TAB PO SCH (20:42)
[2016-10-30] MEDS: ZOLPIDEM 5 MG TAB PO PRN
[2016-10-30] MEDS: DEXTROSE 5%-LR 1,000 ML IV SCH (01:55)
[2016-10-30] MEDS: PANTOPRAZOLE (EC) 40 MG TAB PO SCH (06:09)
[2016-10-30 06:14] LABS: ADD SCAN DIFF NO
[2016-10-30 06:19] LABS: ABNORMAL IP MESSAGE 1; BASOPHIL # 0.1 10^3/ul (0.0-0.1); BASOPHILS % 0.4 % (0.0-2.0); EOSINOPHILS # 0.3 10^3/ul (0.0-0.5); EOSINOPHILS % 2.3 % (0.0-7.0); HEMATOCRIT 32.1 % (37.0-47.0); HEMOGLOBIN 10.4 g/dl (12.0-16.0); LYMPHOCYTES % 23.5 % (15.0-51.0); MEAN CORPUSCULAR HEMOGLOBIN 28.3 pg (29.0-33.0); MEAN CORPUSCULAR HGB CONC 32.4 g/dl (32.0-37.0); MEAN CORPUSCULAR VOLUME 87.5 fl (82.0-101.0); MEAN PLATELET VOLUME 13.2 fl (7.4-10.4); MONOCYTE # 1.4 10^3/ul (0.3-0.9); MONOCYTES % 11.3 % (0.0-11.0); NEUTROPHILS % 62.1 % (39.0-77.0); PLATELET COUNT 184 10^3/UL (140-415); RED BLOOD COUNT 3.67 10^6/ul (4.20-5.40); RED CELL DISTRIBUTION WIDTH 15.7 % (11.5-14.5); WHITE BLOOD COUNT 12.8 10^3/ul (4.8-10.8)
[2016-10-30 07:00] VITALS: BP 149/72; RESP 18
[2016-10-30] MEDS: DEXAMETHASONE 4 MG/ML 1 ML INJ IV SCH (07:00)
--- NOTE | 2016-10-30 07:58 | PDOCDIS ---
Discharge Instructions DIAGNOSIS Discharge Diagnosis Status post right total knee arthroplasty CONDITION Patient Condition: Stable HOME CARE INSTRUCTIONS: Diet Instructions: RegularSpecial Diet: REG ACTIVITY: Activity Restrictions: Slowly Increase Activity Rest between Activity Avoid heavy lifting No Sexual Activity Do not Drive Do not operate Machinery Do not operate Power Tool Avoid Heavy Housework Keep Limb Elevated (While at rest. Ice modalities encouraged.) Weight Bearing (As tolerated with front wheeled walker.) Bathing Restrictions: Shower (Using Tegaderm with pad. Apply prior to shower. After shower, pat the area dry and then remove Tegaderm. Repeat the steps each day until cristina are removed around 10 days postoperatively.) FOLLOW UP/APPOINTMENTS Follow-up Plan 11/17/2016 at 2:15 PM BE SERNA PA-C Oct 30, 2016 07:58
--- NOTE | 2016-10-30 08:03 | PN ---
Date/Time of Note Date/Time of Note DATE: 10/30/16 TIME: 08:00 Assessment/Plan VTE Prophylaxis VTE Prophylaxis Intervention: ambulation, SCD's, other (Aspirin 325 mg twice daily) Lines/Catheters IV Catheter Type (from Nrsg): Saline Lock Barillas in Place (from Nrsg): No Assessment/Plan Assessment/Plan -Pain Meds as needed -Dress change performed today -ASA for DVT Prophylaxis x 6 weeks outpatient discussed. -Continue monitoring as outpatient on discharge -Follow-up at scheduled postop outpatient appointment or sooner if there is any issue. -Tegaderm dressings given with specific instructions to use as outpatient to keep wound dry until cristina are moved around 10 days. -Patient Stable -Discharge to Home with home health Subjective 24 Hr Interval Summary 76-year-old female postop day 3 status post right total knee arthroplasty. Patient complains of mild aches to the right knee. Patient is up and out of bed and walking with use of front wheeled walker. Denies any calf pain, chest pain/tightness or shortness of breath. Patient continues to do well and would like to be discharged home today. Pain Control: mild Exam/Review of Systems Vital Signs Vitals Vital Signs Date Time Temp Pulse Resp B/P Pulse Ox O2 Delivery O2 Flow Rate FiO2 10/29/16 19:15 97.8 70 18 122/58 94 10/27/16 19:35 Room Air Intake and Output 10/29/16 10/29/16 10/30/16 15:00 23:00 07:00 Intake Total 1590 ml 1540 ml Output Total 650 ml 850 ml Balance 940 ml 690 ml Exam Free Text/Dictation -Pain Cocktail Drains: Intact -Incision: Clean, Dry and Intact without any redness or drainage -5/5 Tibialis Anterior, EHL Gastrocnemius/Soleus and Peroneals -Normal Sensation -Palpable DP/PT, Capillary Refill <2 secs -No Distal Edema -Negative Cherelle Sign/No calf pain -Toes Freely Movable Constitutional: alert, oriented, well developed Results Result Diagram: 10/30/16 0415 10/28/16 0425 BE SERNA PA-C Oct 30, 2016 08:03
--- NOTE | 2016-10-30 08:05 | DS ---
Date/Time of Note Date/Time of Note DATE: 10/30/16 TIME: 08:03 Discharge Summary Admission/Discharge Info Admit Date/Time Oct 27, 2016 at 05:30 Discharge Date/Time 10/30/16 Discharge Diagnosis Status post right total knee arthroplasty Patient Condition: Stable Hospital Course On the day of admission, the patient underwent right total knee arthroplasty Intraoperative complications: None Postoperative complications: None The patient was given prophylactic antibiotics and anticoagulants. On the day of surgery and first postoperative day patient was started on gait training and was taught usual restrictions following knee replacement Suction drain removed on the first postoperative day and the dressings were changed. The wound was found to be clean and healing well. There was no sign of infection. Pain cocktail given. On the second postoperative day, patient continued with inpatient PT. Dressings were changed. Wound was found to be clean and healing well. No signs of infection. Pain cocktail given. On the day of discharge, the wound was clean and healing well; there was no sign of infection. The dressings were changed. Discharge Temperature: 97.9 Discharge White Blood Cell Count: 12.8 Discharge Hemoglobin: 10.4 The patient was discharged home with home health. Arrangements were made for visiting nurses and home health/physical therapy. Tegaderm with pad also provided for patient. Instructions given on how to use to keep wound dry while showering. Patient may discontinue use of Tegaderm with pad after cristina have been removed around 10 days postoperatively. The patient will be seen in office at scheduled postoperative evaluation date given on their preoperative exam. Should patient complain of any problems prior to scheduled postoperative evaluation date, they may call into outpatient clinic to determine if they need to be scheduled at sooner appointment to be seen immediately if needed. Discharge medications: As per medication reconciliation form Diet: Same as preadmission diet. This is Be Briscoe PA-C dictating discharge summary for Dr. Harlan Leo. Home Meds Reported Medications Valsartan* (Diovan*) 80 Mg Tablet, 80 MG PO DAILY, TAB 10/27/16 Atorvastatin (Atorvastatin) 10 Mg Tablet, 10 MG PO QHS, #30 TAB 10/27/16 Mirabegron (Myrbetriq) 50 Mg Tab.er.24h, 1 MG PO DAILY, TAB 10/27/16 Discontinued Reported Medications Valsartan* (Diovan*) 40 Mg Tablet, 25 MG PO DAILY 1/2 tab 04/26/13 Follow-up Plan 11/17/2016 at 2:15 PM Primary Care Provider Not On Staff Doctor Pending Labs Laboratory Tests Test 10/30/16 04:15 White Blood Count 12.810^3/ul (4.8-10.8) Red Blood Count 3.6710^6/ul (4.20-5.40) Hemoglobin 10.4g/dl (12.0-16.0) Hematocrit 32.1% (37.0-47.0) Mean Corpuscular Volume 87.5fl (82.0-101.0) Mean Corpuscular Hemoglobin 28.3pg (29.0-33.0) Mean Corpuscular Hemoglobin Concent 32.4g/dl (32.0-37.0) Red Cell Distribution Width 15.7% (11.5-14.5) Platelet Count 89544^3/UL (140-415) Mean Platelet Volume 13.2fl (7.4-10.4) Neutrophils % 62.1% (39.0-77.0) Lymphocytes % 23.5% (15.0-51.0) Monocytes % 11.3% (0.0-11.0) Eosinophils % 2.3% (0.0-7.0) Basophils % 0.4% (0.0-2.0) Nucleated Red Blood Cells % 0.0/100WBC (0.0-0.0) Neutrophils # 8.010^3/ul (1.6-7.5) Lymphocytes # 3.010^3/ul (0.8-2.9) Monocytes # 1.410^3/ul (0.3-0.9) Eosinophils # 0.310^3/ul (0.0-0.5) Basophils # 0.110^3/ul (0.0-0.1) Nucleated Red Blood Cells # 0.010^3/ul (0.0-0.0) BE SERNA PA-C Oct 30, 2016 08:05
--- NOTE | 2016-10-30 08:09 | PN ---
DATE: 10/30/2016 TIME: Approximately 7:35 a.m. on 10/30/2016. SUBJECTIVE: The patient is comfortable, having her knee tended to. Ambulated without any great dif ficulty the day before and feels ready to go home. PHYSICAL EXAMINATION: VITAL SIGNS: Last set of vital signs, temperature 97.8, pulse 70, respirations 18, blood pressure 1 22/58, O2 saturations 94% on room air. HEENT: Unremarkable. LUNGS: Clear. HEART: Reveals a regular rhythm. IMPRESSION: 1. Status post total knee replacement on the right side. 2. Hypertension. 3. Chronic bladder issues. 4. Hyperlipidemia. DISCUSSION AND PLAN: Per orthopedics, my understanding is she will be going home today. From a med ical standpoint, she is stable. Will continue home medication which include: 1. Valsartan 80 mg a day. 2. Myrbetriq 50 mg every 24 hours. 3. Atorvastatin 10 mg. Her laboratory has been stable. Her white count has been coming down. Her hemoglobin and hematocri t have stayed stable. Thank you again, Dr. Leo, for allowing us to participate in the care of this patient. Dictated By: EDY COLLINS/TRENT Conf#: [id number] DID#: [id number]
[2016-10-30] MEDS: CELECOXIB 200 MG CAP PO SCH (08:33)
[2016-10-30] MEDS: VALSARTAN 80 MG TAB PO SCH (08:33)
[2016-10-30] MEDS: DOCUSATE SODIUM 100 MG CAP PO SCH (08:33)
[2016-10-30] MEDS: ASPIRIN (EC) 325 MG TAB PO SCH (08:33)
[2016-10-30] MEDS: FERROUS FUMARATE (SR) TAB PO SCH (08:33)
[2016-10-30] MEDS: MYRBETRIQ 50 MG PO SCH (08:34)
[2016-10-30] MEDS: oxyCODONE 5 MG TAB PO PRN (08:34)
[2016-10-30] MEDS: OLOPATADINE 0.1% 5 ML OPH BOTH EYES SCH (09:00)
== END 2016-10-30 11:37 | disposition home health service (06) | DRG 470 ==
LOC: REC 05:30 → MS1 17:05
PROC: 0SRC0J9 Replacement of Right Knee Joint with Synthetic Substitute, Cemented, Open Approach (ICD-10-PCS; principal; 2016-10-27 07:30)
DX: M17.11 Unilateral primary osteoarthritis, right knee (principal); N32.81 Overactive bladder; I10 Essential (primary) hypertension; K21.9 Gastro-esophageal reflux disease without esophagitis; E78.5 Hyperlipidemia, unspecified; Z79.82 Long term (current) use of aspirin
CPT/HCPCS: 73560; 80053; 81003; 85025; 86850; 86900; 86901; 86920; 87081; 87086; 88304; 88311; 97110; 97116; 97162; 97166; 97530; J1940; C1776; J0131; J0690; J0735; J1100; J1170; J1200; J1885; J2250; J2274; J2405; J2710; J2795; J3010; J3370; J7120; J7121; J7999

== ENCOUNTER 2016-11-03 16:57 | Inpatient (IN) | payer MEDICARE, OTHER ==
[~2016-11-03] VITALS: Ht 167.6 cm; Wt 83.0 kg
[2016-11-03] MEDS ORDERED: ONDANSETRON 4 MG INJ IV STA (17:12)
[2016-11-03] MEDS ORDERED: HYDROmorphONE 1 MG/ML SYG IV STA (17:12)
[2016-11-03] MEDS ORDERED: SOD CHLORIDE 0.9% 1,000 ML IV STA (17:12)
[2016-11-03] MEDS ORDERED: PIPER-TAZO 3.375 GM IV (PMX) 100 ML IVPB STA (17:12)
[2016-11-03] MEDS ORDERED: VANCOMYCIN 1 GM (PMX) 250 ML IVPB SCH (17:30)
[2016-11-03] MEDS ORDERED: SOD CHLORIDE 0.9% 1,000 ML IV SCH (17:39)
--- NOTE | 2016-11-03 17:39 | ERA ---
ER Documentation Chief Complaint Date/Time DATE: 11/03/16 TIME: 17:35 Chief Complaint RIGHT KNEE PAIN/SWELLING, SENT PER PMD HPI This is a 76-year-old female who underwent a total right knee replacement by Dr. Leo last month. She says with the past 3-4 days she is getting gradually worsening of erythema to the right knee along the anterior and proximal medial knee. She says she has pain as well but she has full range of motion of her knee. She does not think she has had a fever with a T-max of 99 according to the patient. She was seen by her primary care doctor today and was sent to the ER for admission to the hospital. She denies any chest pain shortness of breath cough or swelling of the thigh or calf ROS All systems reviewed and are negative except as per history of present illness. Medications Home Meds Reported Medications Valsartan* (Diovan*) 80 Mg Tablet, 80 MG PO DAILY, TAB 10/27/16 Atorvastatin (Atorvastatin) 10 Mg Tablet, 10 MG PO QHS, #30 TAB 10/27/16 Mirabegron (Myrbetriq) 50 Mg Tab.er.24h, 1 MG PO DAILY, TAB 10/27/16 Discontinued Reported Medications Valsartan* (Diovan*) 40 Mg Tablet, 25 MG PO DAILY 1/2 tab 04/26/13 Allergies Allergies: Coded Allergies: sulfamethoxazole (Verified Allergy, Intermediate, n/v, 10/27/16) trimethoprim (Verified Allergy, Intermediate, n/v, 10/27/16) Sulfa (Sulfonamide Antibiotics) (Verified Allergy, Unknown, 10/27/16) PMhx/Soc History of Surgery: Yes (RT HIP 2014,APPENDECTOMY,LT LUMPECTOMY,CERVICAL CONE) Anesthesia Reaction: No Hx Neurological Disorder: Yes (MINI STROKE, BRAIN ANEURYSM) Hx Respiratory Disorders: Yes (SINUS DRIP) Hx Cardiac Disorders: Yes (HTN,HLD) Hx Psychiatric Problems: No Hx Miscellaneous Medical Probl: Yes (chronic bladder issues, HTN, hyperlipidemia) Hx Alcohol Use: Yes (OCCASIONAL) Hx Substance Use: No Hx Tobacco Use: Yes FmHx Family History: No coronary disease Physical Exam Vitals Vital Signs Date Time Temp Pulse Resp B/P Pulse Ox O2 Delivery O2 Flow Rate FiO2 11/03/16 16:58 99.6 84 16 108/64 96 Physical Exam Const: Well-developed, well-nourished Head: Atraumatic, normocephalic Eyes: Normal Conjunctiva, PERRLA, EOMI, normal sclera, no nystagmus ENT: Normal External Ears, Nose and Mouth, moist mucus membranes. Neck: Full range of motion. No meningismus, no lymphadenopathy. Resp: Clear to auscultation bilaterally, no wheezing, rhonchi, rales Cardio: Regular rate and rhythm, no murmurs, S1 S2 present Abd: Soft, non tender x 4, non distended. Normal bowel sounds, no guarding or rebound, no pulsitile abdominal masses or bruits Skin: No petechiae or rashes, no ecchymosis , no maculopapular rash, erythema to the right knee in the anterior aspect in the medial distal portion of the thigh there are cristina that are intact no purulent drainage Back: No midline or flank tenderness Ext: No cyanosis, or edema, FROM x 4, normal inspection, neurovascularly intact x 4 right knee has cristina status post surgical placement she has full range of motion of knee with minimal pain, no signs of septic joint Neur: Awake and alert, STR 5/5 x 4, sensation intact x 4, no focal findings, cerebellum intact Psych: Normal Mood and Affect Results 24 hrs Current Medications Medications (Trade) Dose Ordered Sig/Ed Route PRN Reason Start Time Stop Time Status Last Admin Dose Admin Sodium Chloride (NS) 1,000 ml @ 1,000 mls/hr Q1H STAT IV 11/03/16 17:12 11/03/16 18:11 11/03/16 17:33 Hydromorphone HCl (Dilaudid) 1 mg ONCE STAT IV 11/03/16 17:12 11/03/16 17:14 DC 11/03/16 17:32 Ondansetron HCl 4 mg 4 mg ONCE STAT IV 11/03/16 17:12 11/03/16 17:14 DC 11/03/16 17:32 Piperacillin Sod/ Tazobactam Sod 100 ml @ 200 mls/hr ONCE STAT IVPB 11/03/16 17:12 11/03/16 17:41 Vancomycin HCl (Vancocin) 250 ml @ 125 mls/hr ONCE IVPB 11/03/16 17:30 11/03/16 19:29 Procedures/MDM Patient was sent for admission to the hospital. Primary care doctor eve, knows the patient is here according to the charge nurse and can be admitted under his service She was given intravenous antibiotics 2 as well as IV fluids We will admit to medical surgical floor Departure Diagnosis: Primary Impression: Postoperative infection Qualified Code: T81.4XXA - Postoperative infection, initial encounter Additional Impression: Cellulitis Qualified Code: L03.115 - Cellulitis of right lower extremity Condition: Stable MELISSA GIL DO Nov 03, 2016 17:38
[2016-11-03] MEDS ORDERED: ONDANSETRON 4 MG INJ IV PRN (18:00)
[2016-11-03] MEDS ORDERED: ACETAMINOPHEN 325 MG TAB PO PRN ×3 (18:00→22:00)
[2016-11-03 18:11] LABS: ADD SCAN DIFF NO
[2016-11-03 18:12] LABS: ABNORMAL IP MESSAGE 1; BASOPHIL # 0.1 10^3/ul (0.0-0.1); BASOPHILS % 0.4 % (0.0-2.0); EOSINOPHILS # 0.4 10^3/ul (0.0-0.5); EOSINOPHILS % 2.7 % (0.0-7.0); HEMATOCRIT 30.9 % (37.0-47.0); LYMPHOCYTES # 1.6 10^3/ul (0.8-2.9); LYMPHOCYTES % 12.3 % (15.0-51.0); MEAN CORPUSCULAR HGB CONC 32.4 g/dl (32.0-37.0); MEAN CORPUSCULAR VOLUME 86.6 fl (82.0-101.0); MEAN PLATELET VOLUME 11.6 fl (7.4-10.4); MONOCYTE # 1.8 10^3/ul (0.3-0.9); MONOCYTES % 13.4 % (0.0-11.0); NEUTROPHIL # 9.4 10^3/ul (1.6-7.5); NEUTROPHILS % 70.3 % (39.0-77.0); PLATELET COUNT 280 10^3/UL (140-415); RED BLOOD COUNT 3.57 10^6/ul (4.20-5.40); RED CELL DISTRIBUTION WIDTH 15.3 % (11.5-14.5); WHITE BLOOD COUNT 13.3 10^3/ul (4.8-10.8)
[2016-11-03 18:40] LABS: ALBUMIN 3.8 g/dl (3.3-4.9); ALBUMIN/GLOBULIN RATIO 1.58; BILIRUBIN,INDIRECT 0.1 mg/dl (0-1.1); BILIRUBIN,TOTAL 0.1 mg/dl (0.2-1.3); CALCIUM 8.6 mg/dl (8.4-10.2); CREATININE 1.28 mg/dl (0.44-1.00); POTASSIUM 4.5 mmol/L (3.5-5.1); TOTAL PROTEIN 6.2 g/dl (6.1-8.1)
[2016-11-03 19:02] VITALS: TEMP 97.8
[2016-11-03 21:11] VITALS: BP 116/56; RESP 18
[2016-11-03 21:15] VITALS: BP 116/56; PULSE 77; RESP 18
[2016-11-03 22:00] VITALS: Ht 167.6 cm; Wt 83.0 kg
[2016-11-03] MEDS ORDERED: DOCUSATE SODIUM 100 MG CAP PO PRN (22:00)
[2016-11-03] MEDS ORDERED: LACTATED RINGER'S 500 ML IV ONE (22:00)
[2016-11-03] MEDS ORDERED: NACL 0.9% 3 ML SYG IV SCH (22:00)
[2016-11-03] MEDS ORDERED: BISACODYL (EC) 5 MG TAB PO PRN (22:00)
[2016-11-03] MEDS ORDERED: HYDROCODONE/APAP (5/325) TAB PO PRN (22:00)
[2016-11-03] MEDS ORDERED: VANCOMYCIN IV PER PHARMACY XX SCH ×2 (22:00)
[2016-11-03] MEDS ORDERED: ZOLPIDEM 5 MG TAB PO PRN (22:00)
[2016-11-03] MEDS: DOXYCYCLINE 100 MG TAB PO SCH (22:51)
[2016-11-03] MEDS: HYDROCODONE/APAP (5/325) TAB PO PRN (22:51)
[2016-11-03] MEDS: HEPARIN 5,000 UNIT/0.5 ML VIAL SC SCH (23:01)
[2016-11-04] MEDS: ZOLPIDEM 5 MG TAB PO PRN (00:38)
[2016-11-04] MEDS: HYDROCODONE/APAP (5/325) TAB PO PRN ×3 (05:13→20:52)
[2016-11-04 05:21] VITALS: BP 124/60; PULSE 77; RESP 18
[2016-11-04 05:50] LABS: ADD SCAN DIFF NO
[2016-11-04 06:16] LABS: BASOPHIL # 0.1 10^3/ul (0.0-0.1); BASOPHILS % 0.5 % (0.0-2.0); EOSINOPHILS # 0.6 10^3/ul (0.0-0.5); EOSINOPHILS % 6.1 % (0.0-7.0); HEMOGLOBIN 9.3 g/dl (12.0-16.0); LYMPHOCYTES % 19.7 % (15.0-51.0); MEAN CORPUSCULAR HEMOGLOBIN 28.3 pg (29.0-33.0); MEAN CORPUSCULAR HGB CONC 32.1 g/dl (32.0-37.0); MEAN CORPUSCULAR VOLUME 88.1 fl (82.0-101.0); MEAN PLATELET VOLUME 11.8 fl (7.4-10.4); MONOCYTE # 1.3 10^3/ul (0.3-0.9); NEUTROPHIL # 6.1 10^3/ul (1.6-7.5); NEUTROPHILS % 60.3 % (39.0-77.0); PLATELET COUNT 262 10^3/UL (140-415); RED BLOOD COUNT 3.29 10^6/ul (4.20-5.40); RED CELL DISTRIBUTION WIDTH 15.5 % (11.5-14.5); WHITE BLOOD COUNT 10.1 10^3/ul (4.8-10.8)
[2016-11-04 06:34] LABS: CALCIUM 8.2 mg/dl (8.4-10.2); CREATININE 1.15 mg/dl (0.44-1.00); MAGNESIUM 3.1 mg/dl (1.7-2.5); POTASSIUM 3.8 mmol/L (3.5-5.1)
[2016-11-04 07:26] VITALS: BP 106/53; RESP 18
[2016-11-04] MEDS ORDERED: [UNRECOGNIZED DRUG - REMARK] XX SCH (08:30)
[2016-11-04] MEDS: DOXYCYCLINE 100 MG TAB PO SCH ×2 (08:44→20:52)
[2016-11-04] MEDS: VALSARTAN 80 MG TAB PO SCH (08:45)
[2016-11-04] MEDS: FAMOTIDINE 20 MG TAB PO SCH ×2 (08:45→20:52)
[2016-11-04] MEDS: HEPARIN 5,000 UNIT/0.5 ML VIAL SC SCH ×2 (08:56→21:04)
[2016-11-04] MEDS ORDERED: MIRABEGRON PO SCH (09:00)
--- NOTE | 2016-11-04 13:19 | HP ---
Date/Time of Note Date/Time of Note DATE: 11/04/16 TIME: 13:09 Assessment/Plan VTE Prophylaxis VTE Prophylaxis Intervention: ambulation, anti-embolic stocking Assessment/Plan Assessment/Plan * Continued monitoring with internal medicine * Attempting consult with infectious disease/Dr. Michael Schuster for secondary consult. * Continue with pain medications as needed * Physical therapy order was placed by internal medicine and patient may initiate. * Patient can continue on current antibiotics of doxycycline and vancomycin unless changed by internal medicine or infectious disease This is Be Serna dictating an admission note for Dr. Harlan Leo HPI/ROS Admit Date/Time Admit Date/Time Nov 03, 2016 at 17:39 Hx of Present Illness This is an admission note for patient Dimple Nunez. 76-year-old female status post right total knee replacement on 10/27/2016. Patient was discharged on 2016. Patient was doing well after discharge from the hospital and then in the oncoming days she began noticing redness to the right knee. Patient denied any fever or complaints while she was outpatient. Called into the office due to concern of redness. Initially, patient was advised to follow-up early in office for evaluation but she felt that the redness was not as serious. It was advised that she send a picture at the minimum so that observation of wound can be seen. After picture was sent, Dr. Leo requested prescription for doxycycline 100 mg twice daily to be sent and also discussed directly with patient to follow-up in office. Patient did follow-up in office on 11/03/2016. Patient also had complaints of constipation while taking pain medication postoperatively. Patient states that she got in touch with her primary care provider, who sent a prescription for laxative, that she did not recall the name of, which then caused frequent diarrhea. Patient had ongoing diarrhea to the point where she felt she was dehydrated. Patient has shortness of breath. Denies any chest pain or tightness on medical evaluation on 11/03/2016. After full evaluation in outpatient office and ongoing erythema to the knee with increased temperature to the knee, Dr. Leo decided that patient needed to be readmitted for close monitoring as well as IV antibiotics to prevent cellulitis/infection to the right knee status post surgery. Patient had no increased pain to the right knee but was concerned about growing erythema surrounding knee. Patient presented to emergency room and arrangement with internal medicine/Dr. Nava was achieved. Patient was then admitted to the hospital for close monitoring. PMH/Family/Social Social History Smoking Status: Never smoker Exam/Review of Systems Vital Signs Vitals Vital Signs Date Time Temp Pulse Resp B/P Pulse Ox O2 Delivery O2 Flow Rate FiO2 11/04/16 07:26 98.6 69 18 106/53 92 11/04/16 05:21 Room Air 11/03/16 20:39 2.0 Intake and Output 11/03/16 11/03/16 11/04/16 15:00 23:00 07:00 Intake Total 490 ml 980 ml Balance 490 ml 980 ml Exam Constitutional: alert, oriented, well developed Labs Result Diagram: 11/04/1652111/04/16521 Medications Medications Current Medications Vancomycin HCl (Vanco Iv Per Pharmacy) 1 ea NOTE XX ; Start 11/03/16 at 22:00 Acetaminophen/ Hydrocodone Bitart ([place] (5/325)) 1 tab Q6H PRN PO MODERATE PAIN LEVEL 4-6 Last administered on 11/03/16 22:51; Admin Dose 1 TAB; Start at 22:00 Acetaminophen/ Hydrocodone Bitart ([place] (5/325)) 2 tab Q6H PRN PO SEVERE PAIN LEVEL 7-10 Last administered on 11/04/16 05:13; Admin Dose 2 TAB; Start at 22:00 Docusate Sodium (Colace) 100 mg Q12H PRN PO CONSTIPATION; Start 11/03/16 at 22: 00 Bisacodyl (Dulcolax) 5 mg DAILY PRN PO CONSTIPATION; Start 11/03/16 at 22:00 Famotidine (Pepcid) 20 mg Q12 PO Last administered on 11/04/16 08:45; Admin Dose 20 MG; Start 11/04/16 at 09:00 Heparin Sodium (Porcine) (Heparin (5000 Units/0.5 ml)) 5,000 unit Q12 SC Last administered on 11/04/16 08:56; Admin Dose 5,000 UNIT; Start 11/03/16 at 22:00 Valsartan (Diovan) 80 mg DAILY PO Last administered on 11/04/16 08:45; Admin Dose 80 MG; Start 11/04/16 at 09:00 Miscellaneous Information 1 mg DAILY PO ; Start 11/04/16 at 09:00; Status UNV Doxycycline Hyclate (Vibramycin) 100 mg BID PO Last administered on 11/04/16 08:44; Admin Dose 100 MG; Start 11/03/16 at 22:00 Acetaminophen/ Hydrocodone Bitart ([place] (5/325)) 1 tab Q4H PRN PO PAIN Last administered on 11/04/16 00:38; Admin Dose 1 TAB; Start 11/03/16 at 22:00 Acetaminophen (Tylenol Tab) 650 mg Q6H PRN PO PAIN AND OR ELEVATED TEMP; Start 11/03/16 at 22:00 Zolpidem Tartrate (Ambien) 5 mg HS PRN PO INSOMNIA Last administered on 00:38; Admin Dose 5 MG; Start 11/03/16 at 22:00 Atorvastatin Calcium 20 mg 20 mg HS PO ; Start 11/04/16 at 21:00 Vancomycin HCl (Vancocin) 250 ml @ 125 mls/hr Q24H IVPB ; Start 11/04/16 at 15: 00 Miscellaneous Information (*Order Clarification Bulletin) MEDICATION REQUIRES CLARIFICATION:MY... Q8H XX ; Start 11/04/16 at 08:30 BE SERNA PA-C Nov 04, 2016 13:19
--- NOTE | 2016-11-04 13:23 | PN ---
Date/Time of Note Date/Time of Note DATE: 11/04/16 TIME: 13:19 Assessment/Plan VTE Prophylaxis VTE Prophylaxis Intervention: ambulation Assessment/Plan Assessment/Plan * Continued monitoring with internal medicine * Attempting to establish infectious disease consult with Dr. Michael Schuster * Pain medications as tolerated * Patient may initiate physical therapy has order has been placed by internal medicine. Nurse confirms the physical therapy will be administered. * For now, continue with IV vancomycin and doxycycline unless adjustment is made by internal medicine or infectious disease if needed. * White blood cell count has improved as it is 10.1 today from around 13 yesterday. * Patient may continue with weightbearing as tolerated. Subjective 24 Hr Interval Summary Free Text/Dictation 76-year-old female admitted on 11/03/2016 for ongoing monitoring for possible cellulitis/infection to the right knee status post right total knee replacement on 10/27/2016. Since being admitted yesterday patient continues with vancomycin and doxycycline. Continued monitoring with internal medicine. Patient continues with pain but mild to moderate at this time. Denies any increase in pain since she was admitted. She states that redness has mildly improved. Having stiffness to the knee today as she has not had physical therapy. Physical therapy order has been placed by internal medicine. Denies any fever, chills or malaise. Continues to have diarrhea. Has been given IV fluids that she did have dehydration yesterday. Exam/Review of Systems Vital Signs Vitals Vital Signs Date Time Temp Pulse Resp B/P Pulse Ox O2 Delivery O2 Flow Rate FiO2 11/04/16 07:26 98.6 69 18 106/53 92 11/04/16 05:21 Room Air 11/03/16 20:39 2.0 Intake and Output 11/03/16 11/03/16 11/04/16 15:00 23:00 07:00 Intake Total 490 ml 980 ml Balance 490 ml 980 ml Exam * Erythema to the right knee. Mild improvement from erythema seen on outpatient examination yesterday as the area has been marked/outlined. * No significant tenderness to palpation on exam today. * Patient is able to weight-bear with use of front wheeled walker. * While lying in bed, she is able to flex the knee up to 80 and extend with about 10-15 lag from full extension. * Negative Homans sign today. * Normal sensory examination to light touch. * 2+ pedal pulses. Constitutional: alert, oriented, well developed Results Result Diagram: 11/04/16 0511/04/16 0522 Results 24 hrs Laboratory Tests Test 11/03/16 17:40 11/04/16 05:22 White Blood Count 13.3 H 10.1 # Red Blood Count 3.57 L 3.29 L Hemoglobin 10.0 L 9.3 L Hematocrit 30.9 L 29.0 L Mean Corpuscular Volume 86.6 88.1 Mean Corpuscular Hemoglobin 28.0 L 28.3 L Mean Corpuscular Hemoglobin Concent 32.4 32.1 Red Cell Distribution Width 15.3 H 15.5 H Platelet Count 280 # 262 Mean Platelet Volume 11.6 H 11.8 H Neutrophils % 70.3 60.3 Lymphocytes % 12.3 L 19.7 Monocytes % 13.4 H 13.0 H Eosinophils % 2.7 6.1 Basophils % 0.4 0.5 Nucleated Red Blood Cells % 0.0 0.0 Neutrophils # 9.4 H 6.1 Lymphocytes # 1.6 2.0 Monocytes # 1.8 H 1.3 H Eosinophils # 0.4 0.6 H Basophils # 0.1 0.1 Nucleated Red Blood Cells # 0.0 0.0 Sodium Level 132 L 133 L Potassium Level 4.5 3.8 Chloride Level 100 101 Carbon Dioxide Level 29 27 Anion Gap 8 9 Blood Urea Nitrogen 33 H 25 H Creatinine 1.28 H 1.15 H Glucose Level 117 111 Calcium Level 8.6 8.2 L Total Bilirubin 0.1 L Direct Bilirubin 0.00 Indirect Bilirubin 0.1 Aspartate Amino Transf (AST/SGOT) 35 Alanine Aminotransferase (ALT/SGPT) 60 Alkaline Phosphatase 126 H Total Protein 6.2 Albumin 3.8 Globulin 2.40 Albumin/Globulin Ratio 1.58 Magnesium Level 3.1 H Medications Medications Current Medications Vancomycin HCl (Vanco Iv Per Pharmacy) 1 ea NOTE XX ; Start 11/03/16 at 22:00 Acetaminophen/ Hydrocodone Bitart ([place] (5/325)) 1 tab Q6H PRN PO MODERATE PAIN LEVEL 4-6 Last administered on 11/03/16t 22:51; Admin Dose 1 TAB; Start at 22:00 Acetaminophen/ Hydrocodone Bitart ([place] (5/325)) 2 tab Q6H PRN PO SEVERE PAIN LEVEL 7-10 Last administered on 11/04/16 05:13; Admin Dose 2 TAB; Start at 22:00 Docusate Sodium (Colace) 100 mg Q12H PRN PO CONSTIPATION; Start 11/03/16 at 22: 00 Bisacodyl (Dulcolax) 5 mg DAILY PRN PO CONSTIPATION; Start 11/03/16 at 22:00 Famotidine (Pepcid) 20 mg Q12 PO Last administered on 11/04/16 08:45; Admin Dose 20 MG; Start 11/04/16 at 09:00 Heparin Sodium (Porcine) (Heparin (5000 Units/0.5 ml)) 5,000 unit Q12 SC Last administered on 11/04/16 08:56; Admin Dose 5,000 UNIT; Start 11/03/16 at 22:00 Valsartan (Diovan) 80 mg DAILY PO Last administered on 11/04/16 08:45; Admin Dose 80 MG; Start 11/04/16 at 09:00 Miscellaneous Information 1 mg DAILY PO ; Start 11/04/16 at 09:00; Status UNV Doxycycline Hyclate (Vibramycin) 100 mg BID PO Last administered on 11/04/16 08:44; Admin Dose 100 MG; Start 11/03/16 at 22:00 Acetaminophen/ Hydrocodone Bitart ([place] (5/325)) 1 tab Q4H PRN PO PAIN Last administered on 11/04/16 00:38; Admin Dose 1 TAB; Start 11/03/16 at 22:00 Acetaminophen (Tylenol Tab) 650 mg Q6H PRN PO PAIN AND OR ELEVATED TEMP; Start 11/03/16 at 22:00 Zolpidem Tartrate (Ambien) 5 mg HS PRN PO INSOMNIA Last administered on 00:38; Admin Dose 5 MG; Start 11/03/16 at 22:00 Atorvastatin Calcium 20 mg 20 mg HS PO ; Start 11/04/16 at 21:00 Vancomycin HCl (Vancocin) 250 ml @ 125 mls/hr Q24H IVPB ; Start 11/04/16 at 15: 00 Miscellaneous Information (*Order Clarification Bulletin) MEDICATION REQUIRES CLARIFICATION:MY... Q8H XX ; Start 11/04/16 at 08:30 EB SERNA PA-C Nov 04, 2016 13:22
--- NOTE | 2016-11-04 14:08 | CONS ---
Date/Time of Note Date/Time of Note DATE: 11/04/16 TIME: 13:39 Assessment/Plan Assessment/Plan Problems: (1) Postoperative infection Qualifiers: Qualified Code: T81.4XXA - Postoperative infection, initial encounter (2) Cellulitis Status: Acute Qualifiers: Qualified Code: L03.115 - Cellulitis of right lower extremity (3) Overactive bladder Status: Chronic Additional Assessment/Plan plan; patient started on antibiotic paqrenteral .will be seen by iescobar Michelle'd Hospitalization Reason: treat of acute post op infection Consultation Date/Type/Reason Admit Date/Time Nov 03, 2016 at 17:39 Date of Consultation: Nov 03, 2016 Type of Consultation: interna medicine Reason for Consultation post op total knee replacement infection',for medical managent of hypertension and general medical issues Referring Provider: WILLOW MILLS MD Hx of Present Illness patient discharged 10/20/2016 noted to have cellulitis 11/03/16 right knee area. heent.neg cr.negative gi negative gu urinary frequency history of bladder sensitivit ms right knee pain emt upset please refer to full dictation of october 222016 Constitutional: improved, no complaints, No chills, No diaphoresis, No disoriented, No febrile, No other, No poor po, No requiring IVF, No requiring O2 Eyes: No discharge, No no complaints, No other, No pain, No redness, No visual change ENT: No bleeding, No congestion, No discharge, No dysphagia, No no complaints, No other, No pain, No sore throat Respiratory: No cough, No no complaints, No other, No pain, No pleuritic pain, No shortness of breath, No sputum, No wheezing Cardiovascular: No chest pain, No edema, No lightheadedness, No no complaints, No orthopenea, No other, No palpitations, No paroxysmal nocturnal dyspnea Gastrointestinal: No blood, No constipation, No decreased appetite, No diarrhea , No flatus, No nausea, No no complaints, No other, No pain, No passing stool, No vomiting Genitourinary: other (frquency) Musculoskeletal: other (right knee swelling) Skin: erythema, No bruising, No laceration, No no complaints, No other, No pruritis, No rash , No skin lesions Neurologic: No confusion, No dizziness, No focal-weakness, No headache, No no complaints, No other, No seizure, No syncope Endocrine: No dry skin, No no complaints, No other, No polydypsia, No polyuria , No temp intolerance Lymphatic: No adenopathy, No lymphadema, No no complaints, No other, No tender nodes Psychological: No anxiety, No confusion, No depression, No nl mood/affect, No no complaints, No other, No suicidal Past Surgical History total knee replacement 10/24 rest unchanged from dictation of -10/22/2016 Family History Significant Family History: heart disease, cancer Social History Alcohol Use: occasionally Smoking Status: Former smoker Drug Use: none Other Social History see dictation 10/22/2016 Exam/Review of Systems Vital Signs Vitals Vital Signs Date Time Temp Pulse Resp B/P Pulse Ox O2 Delivery O2 Flow Rate FiO2 11/04/16 07:26 98.6 69 18 106/53 92 11/04/16 05:21 Room Air 11/03/16 20:39 2.0 Intake and Output 11/03/16 11/03/16 11/04/16 15:00 23:00 07:00 Intake Total 490 ml 980 ml Balance 490 ml 980 ml Exam Constitutional: alert Psych: no complaints Head: normocephalic Eyes: EOMI, PERRL, nl conjunctiva, nl lids, nl sclera ENMT: nl external ears & nose, nl lips & teeth, nl nasal mucosa & septum, No intubated, No mucosa pink and moist, No other, No tympanic membranes Neck: No bruits, No jvd, No masses, No non-tender, No nuchal rigidity, No other , No supple, No thyromegaly Respiratory: No clear to auscultation, No congested cough, No crackles/rales, No diminished breath sounds, No intercostal retraction, No labored breathing, No normal air movement, No other, No respirations, No tactile fremitus, No wheezing Cardiovascular: No S3, No S4, No bruits, No diastolic murmur, No edema, No gallop, No irregular rhythm, No jugular venous distention (JVD), No murmurs/ extra sounds, No nl pulses, No other, No regular rate and rhythm, No rub, No systolic murmur Gastrointestinal: No ascites, No bowel sounds, No distended, No firm, No hepatomegaly, No mass, No nl liver, spleen, No non-tender, No other, No rebound or guarding, No soft, No splenomegaly, No surgical scars, No tender Genitourinary - Female: No CMT, No CVA tenderness, No nl adnexae, No nl external genitalia, No other, No uterus Musculoskeletal: joint tenderness Extremities: other (cellulitis right knee), tenderness Neurological: No CLINICAL LAB ASSISTANT II-XII intact, No DTR's symmetric, No confused, No focal weakness, No lethargic, No nl mental status, No nl speech, No nl strength, No numbness, No other, No reflexes, No unresponsive Skin: other (erythema r knee) Results Result Diagram: 11/04/1652111/04/16 05 Results 24 hrs Laboratory Tests Test 11/03/16 17:40 11/04/16 05:22 White Blood Count 13.3 H 10.1 # Red Blood Count 3.57 L 3.29 L Hemoglobin 10.0 L 9.3 L Hematocrit 30.9 L 29.0 L Mean Corpuscular Volume 86.6 88.1 Mean Corpuscular Hemoglobin 28.0 L 28.3 L Mean Corpuscular Hemoglobin Concent 32.4 32.1 Red Cell Distribution Width 15.3 H 15.5 H Platelet Count 280 # 262 Mean Platelet Volume 11.6 H 11.8 H Neutrophils % 70.3 60.3 Lymphocytes % 12.3 L 19.7 Monocytes % 13.4 H 13.0 H Eosinophils % 2.7 6.1 Basophils % 0.4 0.5 Nucleated Red Blood Cells % 0.0 0.0 Neutrophils # 9.4 H 6.1 Lymphocytes # 1.6 2.0 Monocytes # 1.8 H 1.3 H Eosinophils # 0.4 0.6 H Basophils # 0.1 0.1 Nucleated Red Blood Cells # 0.0 0.0 Sodium Level 132 L 133 L Potassium Level 4.5 3.8 Chloride Level 100 101 Carbon Dioxide Level 29 27 Anion Gap 8 9 Blood Urea Nitrogen 33 H 25 H Creatinine 1.28 H 1.15 H Glucose Level 117 111 Calcium Level 8.6 8.2 L Total Bilirubin 0.1 L Direct Bilirubin 0.00 Indirect Bilirubin 0.1 Aspartate Amino Transf (AST/SGOT) 35 Alanine Aminotransferase (ALT/SGPT) 60 Alkaline Phosphatase 126 H Total Protein 6.2 Albumin 3.8 Globulin 2.40 Albumin/Globulin Ratio 1.58 Magnesium Level 3.1 H Medications Medications Current Medications Vancomycin HCl (Vanco Iv Per Pharmacy) 1 ea NOTE XX ; Start 11/03/16 at 22:00 Acetaminophen/ Hydrocodone Bitart ([place] (5/325)) 1 tab Q6H PRN PO MODERATE PAIN LEVEL 4-6 Last administered on 11/03/16 22:51; Admin Dose 1 TAB; Start at 22:00 Acetaminophen/ Hydrocodone Bitart ([place] (5/325)) 2 tab Q6H PRN PO SEVERE PAIN LEVEL 7-10 Last administered on 11/04/16 05:13; Admin Dose 2 TAB; Start at 22:00 Docusate Sodium (Colace) 100 mg Q12H PRN PO CONSTIPATION; Start 11/03/16 at 22: 00 Bisacodyl (Dulcolax) 5 mg DAILY PRN PO CONSTIPATION; Start 11/03/16 at 22:00 Famotidine (Pepcid) 20 mg Q12 PO Last administered on 11/04/16 08:45; Admin Dose 20 MG; Start 11/04/16 at 09:00 Heparin Sodium (Porcine) (Heparin (5000 Units/0.5 ml)) 5,000 unit Q12 SC Last administered on 11/04/16 08:56; Admin Dose 5,000 UNIT; Start 11/03/16 at 22:00 Valsartan (Diovan) 80 mg DAILY PO Last administered on 11/04/16 08:45; Admin Dose 80 MG; Start 11/04/16 at 09:00 Miscellaneous Information 1 mg DAILY PO ; Start 11/04/16 at 09:00; Status UNV Doxycycline Hyclate (Vibramycin) 100 mg BID PO Last administered on 11/04/16 08:44; Admin Dose 100 MG; Start 11/03/16 at 22:00 Acetaminophen/ Hydrocodone Bitart ([place] (5/325)) 1 tab Q4H PRN PO PAIN Last administered on 11/04/16 00:38; Admin Dose 1 TAB; Start 11/03/16 at 22:00 Acetaminophen (Tylenol Tab) 650 mg Q6H PRN PO PAIN AND OR ELEVATED TEMP; Start 11/03/16 at 22:00 Zolpidem Tartrate (Ambien) 5 mg HS PRN PO INSOMNIA Last administered on t 00:38; Admin Dose 5 MG; Start 11/03/16 at 22:00 Atorvastatin Calcium 20 mg 20 mg HS PO ; Start 11/04/16 at 21:00 Vancomycin HCl (Vancocin) 250 ml @ 125 mls/hr Q24H IVPB ; Start 11/04/16 at 15: 00 Miscellaneous Information (*Order Clarification Bulletin) MEDICATION REQUIRES CLARIFICATION:MY... Q8H XX ; Start 11/04/16 at 08:30 EDY POWERS MD Nov 04, 2016 13:52
[2016-11-04] MEDS: VANCOMYCIN 1 GM in NS 250 ML IVPB SCH (16:49)
[2016-11-04 19:23] VITALS: BP 125/60; RESP 16
[2016-11-04] MEDS: ATORVASTATIN 20 MG TAB PO SCH (20:49)
[2016-11-05] MEDS: ZOLPIDEM 5 MG TAB PO PRN ×2 (01:17→23:41)
[2016-11-05] MEDS: HYDROCODONE/APAP (5/325) TAB PO PRN ×4 (03:02→23:41)
--- NOTE | 2016-11-05 06:51 | PQ ---
Date/Time of Note Date/Time of Note DATE: 11/05/16 TIME: 06:46 Physician Query This was sent to the file for Dr. Nava to sign. Dr. Nava is not supervising physician for Be Serna PA-C !!!!!! Documentation Clarification Dear BE SERNA PA-C A review of the medical record found a need for documentation clarification. Serum Na = 132- 133 Tx : NS -11/03 Please clarify a diagnosis being treated. To facilitate accurate and complete coding, please farzad ( x ) the suspected diagnosis that apply: ( ) Hyponatremia ( ) Hypernatremia ( x ) Clinically insignificant lab result ( ) Others Please provide your response by clicking edit document, making your choice ( x ), click ok/save and finally click sign. You may also document your response on your progress notes. Thank you for your time. With appreciation, Allan Bowman RN, BSN, CCS, CCDS Clinical Academic Associate Health Information Management, CDI and Coding Services [phone] Room # 1525 - [address]~ [id number] ALLAN BOWMAN Nov 05, 2016 06:51 BE SERNA PA-C Nov 06, 2016 07:30 ESTHELA NAVA MD Nov 11, 2016 09:20
--- NOTE | 2016-11-05 07:22 | PN ---
Date/Time of Note Date/Time of Note DATE: 11/05/16 TIME: 07:17 Assessment/Plan VTE Prophylaxis VTE Prophylaxis Intervention: ambulation Lines/Catheters IV Catheter Type (from Nrsg): Saline Lock Assessment/Plan Assessment/Plan * Consult with Dr. Schuster and he will order Doppler ultrasound for posterior knee pain. * After discussion, likely patient will be discontinued with Zyvoxx but if too expensive combination therapy of doxycycline and Augmentin will be prescribed. * Likely patient can be discharged tomorrow. Will await confirmation with infectious disease. * Continue physical therapy. * Pain medication as needed. * Patient stable Subjective 24 Hr Interval Summary Free Text/Dictation 76-year-old female admitted on 11/03/2016 for suspected cellulitis to the right knee. Has been given antibiotics in regards to IV vancomycin. Infectious disease consult was ordered. As we are obtaining history, infectious disease consult with Dr. Schuster is currently ongoing. Patient states that she continues with pain to the posterior knee. Has had physical therapy and has been up and out of bed walking with front wheeled walker. Patient having limited range of motion secondary to stiffness and discomfort. Average pain is a 5-7/10 on the pain scale. Erythema continues to improve around the knee. Exam/Review of Systems Vital Signs Vitals Vital Signs Date Time Temp Pulse Resp B/P Pulse Ox O2 Delivery O2 Flow Rate FiO2 11/04/16 19:23 98.5 77 16 125/60 96 11/04/16 05:21 Room Air 11/03/16 20:39 2.0 Intake and Output 11/04/16 11/04/16 11/05/16 15:00 23:00 07:00 Intake Total 610 ml Balance 610 ml Exam -Incision: Clean, Dry and Intact. Erythema surrounding the right knee that is gradually improving. There remains increased temperature to touch. -5/5 Tibialis Anterior, EHL Gastrocnemius/Soleus and Peroneals -Normal Sensation -Palpable DP/PT, Capillary Refill <2 secs -No Distal Edema -Negative Cherelle Sign/No calf pain but there is discomfort to the posterior knee. -Toes Freely Movable Constitutional: alert, oriented, well developed Results Result Diagram: 11/04/1622 11/04/16521 Medications Medications Current Medications Vancomycin HCl (Vanco Iv Per Pharmacy) 1 ea NOTE XX ; Start 11/03/16 at 22:00 Acetaminophen/ Hydrocodone Bitart ([place] (5/325)) 1 tab Q6H PRN PO MODERATE PAIN LEVEL 4-6 Last administered on 11/03/16 22:51; Admin Dose 1 TAB; Start at 22:00 Acetaminophen/ Hydrocodone Bitart ([place] (5/325)) 2 tab Q6H PRN PO SEVERE PAIN LEVEL 7-10 Last administered on 11/05/16 03:02; Admin Dose 2 TAB; Start at 22:00 Docusate Sodium (Colace) 100 mg Q12H PRN PO CONSTIPATION; Start 11/03/16 at 22: 00 Bisacodyl (Dulcolax) 5 mg DAILY PRN PO CONSTIPATION; Start 11/03/16 at 22:00 Famotidine (Pepcid) 20 mg Q12 PO Last administered on 11/04/16 20:52; Admin Dose 20 MG; Start 11/04/16 at 09:00 Heparin Sodium (Porcine) (Heparin (5000 Units/0.5 ml)) 5,000 unit Q12 SC Last administered on 11/04/16 21:04; Admin Dose 5,000 UNIT; Start 11/03/16 at 22:00 Valsartan (Diovan) 80 mg DAILY PO Last administered on 11/04/16 08:45; Admin Dose 80 MG; Start 11/04/16 at 09:00 Doxycycline Hyclate (Vibramycin) 100 mg BID PO Last administered on 11/04/16 20:52; Admin Dose 100 MG; Start 11/03/16 at 22:00 Acetaminophen/ Hydrocodone Bitart ([place] (5/325)) 1 tab Q4H PRN PO PAIN Last administered on 11/04/16 00:38; Admin Dose 1 TAB; Start 11/03/16 at 22:00 Acetaminophen (Tylenol Tab) 650 mg Q6H PRN PO PAIN AND OR ELEVATED TEMP; Start 11/03/16 at 22:00 Zolpidem Tartrate (Ambien) 5 mg HS PRN PO INSOMNIA Last administered on 01:17; Admin Dose 5 MG; Start 11/03/16 at 22:00 Atorvastatin Calcium 20 mg 20 mg HS PO ; Start 11/04/16 at 21:00 Vancomycin HCl (Vancocin) 250 ml @ 125 mls/hr Q24H IVPB Last administered on t 16:49; Admin Dose 125 MLS/HR; Start 11/04/16 at 15:00 Patient Own Medication 1 ea DAILY PO ; Start 11/05/16 at 09:00 BE SERNA PA-C Nov 05, 2016 07:21
--- NOTE | 2016-11-05 07:25 | CONS ---
Date/Time of Note Date/Time of Note DATE: 11/05/16 TIME: 07:18 Assessment/Plan Assessment/Plan Chief Complaint/Hosp Course 1) probable R knee cellulitis, post-op continue with vanco for one more day and likely change to po linezolid or augmentin/doxy tomorrow will have case management research what out of pocket cost to patient for linezolid anticipate at total of 10 day course of treatment will order RLE venous doppler since she has some posterior calf/knee pain and swelling 2) HTN well controlled Problems: Consultation Date/Type/Reason Admit Date/Time Nov 03, 2016 at 17:39 Date of Consultation: Nov 05, 2016 Type of Consultation: ID Hx of Present Illness pt had a R tkr on 10/27/16. She progressed well but had some redness to the R knee upon discharge. She did developed some low grade fevers without chills at home and had some sweats. the pain to her knee did not change. She was Rx with doxycycline 1 day [employer]. When seen for routine f/up on 11/03 he was admitted to [facility] Since admission the pain is about the same, she is up and walking. She had some constipation and took laxatives which caused some diarrhea with cramping. The cramping has resolved and her last BM was yesterday but it was loose. No cough, SOB, dysuria, dysphagia, GOETZ, CP, other joint problems Constitutional: improved, no complaints, No chills, No diaphoresis, No disoriented, No febrile, No other, No poor po, No requiring IVF, No requiring O2 Eyes: No discharge, No no complaints, No other, No pain, No redness, No visual change ENT: No bleeding, No congestion, No discharge, No dysphagia, No no complaints, No other, No pain, No sore throat Respiratory: No cough, No no complaints, No other, No pain, No pleuritic pain, No shortness of breath, No sputum, No wheezing Cardiovascular: No chest pain, No edema, No lightheadedness, No no complaints, No orthopenea, No other, No palpitations, No paroxysmal nocturnal dyspnea Gastrointestinal: No blood, No constipation, No decreased appetite, No diarrhea , No flatus, No nausea, No no complaints, No other, No pain, No passing stool, No vomiting Genitourinary: other (paigency) Musculoskeletal: other (right knee swelling) Skin: erythema, No bruising, No laceration, No no complaints, No other, No pruritis, No rash , No skin lesions Neurologic: No confusion, No dizziness, No focal-weakness, No headache, No no complaints, No other, No seizure, No syncope Endocrine: No dry skin, No no complaints, No other, No polydypsia, No polyuria , No temp intolerance Lymphatic: No adenopathy, No lymphadema, No no complaints, No other, No tender nodes Psychological: no complaints Past Medical History HTN, hyperlipidemia Past Surgical History R THR, R TKR Social History Alcohol Use: occasionally Smoking Status: Former smoker Drug Use: none Exam/Review of Systems Vital Signs Vitals Vital Signs Date Time Temp Pulse Resp B/P Pulse Ox O2 Delivery O2 Flow Rate FiO2 11/04/16 19:23 98.5 77 16 125/60 96 11/04/16 05:21 Room Air 11/03/16 20:39 2.0 Intake and Output 11/04/16 11/04/16 11/05/16 15:00 23:00 07:00 Intake Total 610 ml Balance 610 ml Exam Constitutional: alert, oriented Head: normocephalic ENMT: mucosa pink and moist Respiratory: clear to auscultation Cardiovascular: regular rate and rhythm Gastrointestinal: non-tender, soft Extremities: other (R Knee has some surrounding redness with indistinct borders , slight increase in heat, some tenderness but wound is dry and intact, swelling of calf with some posterior pain) Results Result Diagram: 11/04/1622 11/04/16521 Medications Medications Current Medications Vancomycin HCl (Vanco Iv Per Pharmacy) 1 ea NOTE XX ; Start 11/03/16 at 22:00 Acetaminophen/ Hydrocodone Bitart ([place] (5/325)) 1 tab Q6H PRN PO MODERATE PAIN LEVEL 4-6 Last administered on 11/03/16 22:51; Admin Dose 1 TAB; Start at 22:00 Acetaminophen/ Hydrocodone Bitart ([place] (5/325)) 2 tab Q6H PRN PO SEVERE PAIN LEVEL 7-10 Last administered on 11/05/16 03:02; Admin Dose 2 TAB; Start at 22:00 Docusate Sodium (Colace) 100 mg Q12H PRN PO CONSTIPATION; Start 11/03/16 at 22: 00 Bisacodyl (Dulcolax) 5 mg DAILY PRN PO CONSTIPATION; Start 11/03/16 at 22:00 Famotidine (Pepcid) 20 mg Q12 PO Last administered on 11/04/16 20:52; Admin Dose 20 MG; Start 11/04/16 at 09:00 Heparin Sodium (Porcine) (Heparin (5000 Units/0.5 ml)) 5,000 unit Q12 SC Last administered on 11/04/16 21:04; Admin Dose 5,000 UNIT; Start 11/03/16 at 22:00 Valsartan (Diovan) 80 mg DAILY PO Last administered on 11/04/16 08:45; Admin Dose 80 MG; Start 11/04/16 at 09:00 Doxycycline Hyclate (Vibramycin) 100 mg BID PO Last administered on 11/04/16 20:52; Admin Dose 100 MG; Start 11/03/16 at 22:00 Acetaminophen/ Hydrocodone Bitart ([place] (5/325)) 1 tab Q4H PRN PO PAIN Last administered on 11/04/16 00:38; Admin Dose 1 TAB; Start 11/03/16 at 22:00 Acetaminophen (Tylenol Tab) 650 mg Q6H PRN PO PAIN AND OR ELEVATED TEMP; Start 11/03/16 at 22:00 Zolpidem Tartrate (Ambien) 5 mg HS PRN PO INSOMNIA Last administered on 01:17; Admin Dose 5 MG; Start 11/03/16 at 22:00 Atorvastatin Calcium 20 mg 20 mg HS PO ; Start 11/04/16 at 21:00 Vancomycin HCl (Vancocin) 250 ml @ 125 mls/hr Q24H IVPB Last administered on 16:49; Admin Dose 125 MLS/HR; Start 11/04/16 at 15:00 Patient Own Medication 1 ea DAILY PO ; Start 11/05/16 at 09:00 EVELIO GAONA MD Nov 05, 2016 07:25
[2016-11-05 08:08] VITALS: BP 154/70; RESP 18
--- NOTE | 2016-11-05 08:26 | PN ---
Date/Time of Note Date/Time of Note DATE: 11/05/16 TIME: 08:18 Assessment/Plan VTE Prophylaxis VTE Prophylaxis Intervention: heparin Lines/Catheters IV Catheter Type (from Nrs): Saline Lock Assessment/Plan Chief Complaint/Hosp Course patient discharged 10/20/2016 noted to have cellulitis 11/03/16 right knee area. Problems: Assessment/Plan plan per id and ortho erythema area deceasing doing better Subjective 24 Hr Interval Summary Free Text/Dictation patient doing better today had a better nigh ambulated yesterday Constitutional: improved, no complaints, No chills, No diaphoresis, No disoriented, No febrile, No other, No poor po, No requiring IVF, No requiring O2 Respiratory: No cough, No no complaints, No other, No pain, No pleuritic pain, No shortness of breath, No sputum, No wheezing Cardiovascular: No chest pain, No edema, No lightheadedness, No no complaints, No orthopenea, No other, No palpitations, No paroxysmal nocturnal dyspnea Gastrointestinal: No blood, No constipation, No decreased appetite, No diarrhea , No flatus, No nausea, No no complaints, No other, No pain, No passing stool, No vomiting Genitourinary: No bleeding, No discharge, No dysuria, No flank pain, No hematuria, No no complaints, No other Musculoskeletal: swelling Skin: erythema Endocrine: No dry skin, No no complaints, No other, No polydypsia, No polyuria , No temp intolerance Lymphatic: No adenopathy, No lymphadema, No no complaints, No other, No tender nodes Psychological: No anxiety, No confusion, No depression, No nl mood/affect, No no complaints, No other, No suicidal Immunologic: No immunodeficiency, No no complaints, No other, No pruritis, No rhinitis, No urticaria Additional Comments in better spirit today Exam/Review of Systems Vital Signs Vitals Vital Signs Date Time Temp Pulse Resp B/P Pulse Ox O2 Delivery O2 Flow Rate FiO2 11/05/16 08:08 98.0 72 18 154/70 95 11/04/16 05:21 Room Air 11/03/16 20:39 2.0 Intake and Output 11/04/16 11/04/16 11/05/16 15:00 23:00 07:00 Intake Total 610 ml 500 ml Balance 610 ml 500 ml Exam Neck: non-tender, supple Respiratory: clear to auscultation, normal air movement Gastrointestinal: nl liver, spleen, non-tender, soft Genitourinary - Female: No CMT, No CVA tenderness, No nl adnexae, No nl external genitalia, No other, No uterus Musculoskeletal: joint tenderness Extremities: tenderness Neurological: DIRECTOR OF MARKET INTELLIGENCE II-XII intact, nl mental status, nl speech, nl strength Skin: ecchymosis Lymph: nl lymph nodes Results Result Diagram: 11/04/1652111/04/16521 Medications Medications Current Medications Vancomycin HCl (Vanco Iv Per Pharmacy) 1 ea NOTE XX ; Start 11/03/16 at 22:00 Acetaminophen/ Hydrocodone Bitart ([place] (5/325)) 1 tab Q6H PRN PO MODERATE PAIN LEVEL 4-6 Last administered on 11/03/16 22:51; Admin Dose 1 TAB; Start at 22:00 Acetaminophen/ Hydrocodone Bitart ([place] (5/325)) 2 tab Q6H PRN PO SEVERE PAIN LEVEL 7-10 Last administered on 11/05/16 03:02; Admin Dose 2 TAB; Start at 22:00 Docusate Sodium (Colace) 100 mg Q12H PRN PO CONSTIPATION; Start 11/03/16 at 22: 00 Bisacodyl (Dulcolax) 5 mg DAILY PRN PO CONSTIPATION; Start 11/03/16 at 22:00 Famotidine (Pepcid) 20 mg Q12 PO Last administered on 11/04/16 20:52; Admin Dose 20 MG; Start 11/04/16 at 09:00 Heparin Sodium (Porcine) (Heparin (5000 Units/0.5 ml)) 5,000 unit Q12 SC Last administered on 11/04/16 21:04; Admin Dose 5,000 UNIT; Start 11/03/16 at 22:00 Valsartan (Diovan) 80 mg DAILY PO Last administered on 11/04/16 08:45; Admin Dose 80 MG; Start 11/04/16 at 09:00 Doxycycline Hyclate (Vibramycin) 100 mg BID PO Last administered on 11/04/16 20:52; Admin Dose 100 MG; Start 11/03/16 at 22:00 Acetaminophen/ Hydrocodone Bitart ([place] (5/325)) 1 tab Q4H PRN PO PAIN Last administered on 11/04/16 00:38; Admin Dose 1 TAB; Start 11/03/16 at 22:00 Acetaminophen (Tylenol Tab) 650 mg Q6H PRN PO PAIN AND OR ELEVATED TEMP; Start 11/03/16 at 22:00 Zolpidem Tartrate (Ambien) 5 mg HS PRN PO INSOMNIA Last administered on 01:17; Admin Dose 5 MG; Start 11/03/16 at 22:00 Atorvastatin Calcium 20 mg 20 mg HS PO ; Start 11/04/16 at 21:00 Vancomycin HCl (Vancocin) 250 ml @ 125 mls/hr Q24H IVPB Last administered on 16:49; Admin Dose 125 MLS/HR; Start 11/04/16 at 15:00 Patient Own Medication 1 ea DAILY PO ; Start 11/05/16 at 09:00 EDY POWERS MD Nov 05, 2016 08:26
[2016-11-05] MEDS: VALSARTAN 80 MG TAB PO SCH (08:40)
[2016-11-05] MEDS: MYRBETRIC 50 MG PO SCH (08:40)
[2016-11-05] MEDS: FAMOTIDINE 20 MG TAB PO SCH ×2 (08:40→22:15)
[2016-11-05] MEDS: DOXYCYCLINE 100 MG TAB PO SCH ×2 (08:40→22:15)
[2016-11-05] MEDS: HEPARIN 5,000 UNIT/0.5 ML VIAL SC SCH ×2 (08:45→21:00)
--- NOTE | 2016-11-05 10:59 | RADRPT ---
PROCEDURE: US DVT. CLINICAL INDICATION: Right calf and knee swelling with pain. TECHNIQUE: Multiple longitudinal and transverse images of the right lower extremity veins were obt ained with pappas scale and color Doppler imaging. 2D grayscale measurements with compression, color Doppler flow, and augmentation was performed. The calf veins were interrogated as well. COMPARISON: No prior studies are available for comparison. FINDINGS: The right common femoral, superficial femoral and popliteal veins are normally compressible througho ut. Color flow demonstrates normal filling of the vessel. Normal waveforms are visualized and ther e is normal response to augmentation. IMPRESSION: 1. No evidence of a deep vein thrombosis involving the right lower extremity. RPTAT: [facility] Physician Teja Date Time Electronically viewed and signed by Physician Teja on 11/05/2016 10:58 /
[2016-11-05] MEDS: VANCOMYCIN 1 GM in NS 250 ML IVPB SCH (15:19)
[2016-11-05 19:45] VITALS: BP 131/61; RESP 20
[2016-11-05] MEDS: ATORVASTATIN 20 MG TAB PO SCH (20:28)
[2016-11-06 06:18] LABS: BASOPHIL # 0.1 10^3/ul (0.0-0.1); BASOPHILS % 0.5 % (0.0-2.0); EOSINOPHILS # 0.4 10^3/ul (0.0-0.5); HEMATOCRIT 29.9 % (37.0-47.0); HEMOGLOBIN 9.6 g/dl (12.0-16.0); LYMPHOCYTES # 2.4 10^3/ul (0.8-2.9); LYMPHOCYTES % 22.5 % (15.0-51.0); MEAN CORPUSCULAR HEMOGLOBIN 27.4 pg (29.0-33.0); MEAN CORPUSCULAR HGB CONC 32.1 g/dl (32.0-37.0); MEAN CORPUSCULAR VOLUME 85.4 fl (82.0-101.0); MEAN PLATELET VOLUME 11.7 fl (7.4-10.4); MONOCYTE # 1.2 10^3/ul (0.3-0.9); MONOCYTES % 11.4 % (0.0-11.0); NEUTROPHIL # 6.4 10^3/ul (1.6-7.5); PLATELET COUNT 293 10^3/UL (140-415); RED CELL DISTRIBUTION WIDTH 15.5 % (11.5-14.5); WHITE BLOOD COUNT 10.5 10^3/ul (4.8-10.8)
--- NOTE | 2016-11-06 06:27 | CONS ---
Date/Time of Note Date/Time of Note DATE: 11/06/16 TIME: 06:24 Assessment/Plan Assessment/Plan Chief Complaint/Hosp Course 1) probable R knee cellulitis, post-op continue with vanco for one more day and likely change to po linezolid or augmentin/doxy tomorrow will have case management research what out of pocket cost to patient for linezolid anticipate at total of 10 day course of treatment will order RLE venous doppler since she has some posterior calf/knee pain and swelling 11/06 - venous doppler was negative wound is improved d/c vanco/doxy and start linezolid pt only has $22 co-pay for linezolid, Rx left with nurse 2) HTN well controlled Problems: Consultation Date/Type/Reason Admit Date/Time Nov 03, 2016 at 17:39 Initial Consult Date 11/05/16 Type of Consultation: ID Referring Provider: WILLOW MILLS MD 24 HR Interval Summary Free Text/Dictation pt feels nauseated had some SOB yesterday but not this a.m. she feels weak no D, V Exam/Review of Systems Vital Signs Vitals Vital Signs Date Time Temp Pulse Resp B/P Pulse Ox O2 Delivery O2 Flow Rate FiO2 11/05/16 19:45 98.6 74 20 131/61 96 11/04/16 05:21 Room Air 11/03/16 20:39 2.0 Intake and Output 11/05/16 11/05/16 11/06/16 15:00 23:00 07:00 Intake Total 910 ml 240 ml Output Total 300 ml 400 ml Balance 610 ml -160 ml Exam Constitutional: alert, oriented Eyes: nl sclera ENMT: mucosa pink and moist Respiratory: clear to auscultation Cardiovascular: regular rate and rhythm Gastrointestinal: non-tender, soft Extremities: other (R knee has less redness to it, still dry) Results Result Diagram: 11/04/1652111/04/16521 Medications Medications Current Medications Vancomycin HCl (Vanco Iv Per Pharmacy) 1 ea NOTE XX ; Start 11/03/16 at 22:00 Acetaminophen/ Hydrocodone Bitart ([place] (5/325)) 1 tab Q6H PRN PO MODERATE PAIN LEVEL 4-6 Last administered on 11/05/16t 08:48; Admin Dose 1 TAB; Start at 22:00 Acetaminophen/ Hydrocodone Bitart ([place] (5/325)) 2 tab Q6H PRN PO SEVERE PAIN LEVEL 7-10 Last administered on 11/05/16 23:41; Admin Dose 2 TAB; Start at 22:00 Docusate Sodium (Colace) 100 mg Q12H PRN PO CONSTIPATION; Start 11/03/16 at 22: 00 Bisacodyl (Dulcolax) 5 mg DAILY PRN PO CONSTIPATION; Start 11/03/16 at 22:00 Famotidine (Pepcid) 20 mg Q12 PO Last administered on 11/05/16 22:15; Admin Dose 20 MG; Start 11/04/16 at 09:00 Heparin Sodium (Porcine) (Heparin (5000 Units/0.5 ml)) 5,000 unit Q12 SC Last administered on 11/05/16 08:45; Admin Dose 5,000 UNIT; Start 11/03/16 at 22:00 Valsartan (Diovan) 80 mg DAILY PO Last administered on 11/05/16 08:40; Admin Dose 80 MG; Start 11/04/16 at 09:00 Doxycycline Hyclate (Vibramycin) 100 mg BID PO Last administered on 11/05/16 22:15; Admin Dose 100 MG; Start 11/03/16 at 22:00 Acetaminophen/ Hydrocodone Bitart ([place] (5/325)) 1 tab Q4H PRN PO PAIN Last administered on 11/04/16 00:38; Admin Dose 1 TAB; Start 11/03/16 at 22:00 Acetaminophen (Tylenol Tab) 650 mg Q6H PRN PO PAIN AND OR ELEVATED TEMP; Start 11/03/16 at 22:00 Zolpidem Tartrate (Ambien) 5 mg HS PRN PO INSOMNIA Last administered on 23:41; Admin Dose 5 MG; Start 11/03/16 at 22:00 Atorvastatin Calcium 20 mg 20 mg HS PO ; Start 11/04/16 at 21:00 Vancomycin HCl (Vancocin) 250 ml @ 125 mls/hr Q24H IVPB Last administered on 15:19; Admin Dose 125 MLS/HR; Start 11/04/16 at 15:00 Patient Own Medication 1 ea DAILY PO Last administered on 11/05/16t 08:40; Admin Dose 1 EA; Start 11/05/16 at 09:00 EVELIO GAONA MD Nov 06, 2016 06:26
[2016-11-06] MEDS ORDERED: ONDANSETRON 4 MG INJ IV PRN (06:30)
[2016-11-06] MEDS: HYDROCODONE/APAP (5/325) TAB PO PRN (06:37)
[2016-11-06 06:47] LABS: CALCIUM 9.2 mg/dl (8.4-10.2); CREATININE 0.91 mg/dl (0.44-1.00); POTASSIUM 4.2 mmol/L (3.5-5.1)
[2016-11-06 07:17] LABS: ADD SCAN DIFF NO
[2016-11-06 07:19] VITALS: BP 161/76; RESP 18
--- NOTE | 2016-11-06 07:46 | PN ---
Date/Time of Note Date/Time of Note DATE: 11/06/16 TIME: 07:42 Assessment/Plan VTE Prophylaxis VTE Prophylaxis Intervention: ambulation, SCD's Lines/Catheters IV Catheter Type (from Nrsg): Saline Lock Assessment/Plan Assessment/Plan * From an orthopedic standpoint, okay to discharge home. * Patient will need to be cleared by internal medicine. She did express concerns regarding blood pressure as it is elevated today and patient states that she has history of aneurysm. Discussed with and nurse will be getting history on patient dispensing blood pressure medications. * Patient will follow-up in outpatient office after discharge. * Continue with internal medicine from this point. Once again okay to discharge home from an orthopedic standpoint. Patient will continue with antibiotics that were prescribed by infectious disease in regards to Linezolid. Subjective 24 Hr Interval Summary Free Text/Dictation 76-year-old female third day inpatient after readmission due to possible cellulitis of the right knee. White blood cell count continues to be within normal limits. Patient was started on linezolid by infectious disease. Patient was also taking vancomycin. Erythema to the knee continues to improve. No pain to the knee today. Has been up and out of bed with physical therapy. Exam/Review of Systems Vital Signs Vitals Vital Signs Date Time Temp Pulse Resp B/P Pulse Ox O2 Delivery O2 Flow Rate FiO2 11/06/16 07:19 98.6 81 18 161/76 95 11/04/16 05:21 Room Air 11/03/16 20:39 2.0 Intake and Output 11/05/16 11/05/16 11/06/16 15:00 23:00 07:00 Intake Total 910 ml 240 ml Output Total 300 ml 400 ml Balance 610 ml -160 ml Exam * [place] remain clean dry and intact * Erythema surrounding the wound that has improved since admission. * Continues with stiffness with flexion and extension to the knee. * Normal sensory examination to light touch. No tenderness to palpation. * No discharge presentation. Constitutional: alert, oriented Results Result Diagram: 11/06/16 0457 11/06/16 0524 Results 24 hrs Laboratory Tests Test 11/06/16 04:57 11/06/16 05:24 White Blood Count 10.5 Red Blood Count 3.50 L Hemoglobin 9.6 L Hematocrit 29.9 L Mean Corpuscular Volume 85.4 Mean Corpuscular Hemoglobin 27.4 L Mean Corpuscular Hemoglobin Concent 32.1 Red Cell Distribution Width 15.5 H Platelet Count 293 Mean Platelet Volume 11.7 H Neutrophils % 61.0 Lymphocytes % 22.5 Monocytes % 11.4 H Eosinophils % 4.0 Basophils % 0.5 Nucleated Red Blood Cells % 0.0 Neutrophils # 6.4 Lymphocytes # 2.4 Monocytes # 1.2 H Eosinophils # 0.4 Basophils # 0.1 Nucleated Red Blood Cells # 0.0 Sodium Level 135 Potassium Level 4.2 Chloride Level 105 Carbon Dioxide Level 24 Anion Gap 10 Blood Urea Nitrogen 14 Creatinine 0.91 Glucose Level 101 Calcium Level 9.2 Medications Medications Current Medications Acetaminophen/ Hydrocodone Bitart ([place] (5/325)) 1 tab Q6H PRN PO MODERATE PAIN LEVEL 4-6 Last administered on 11/05/16 08:48; Admin Dose 1 TAB; Start at 22:00 Acetaminophen/ Hydrocodone Bitart ([place] (5/325)) 2 tab Q6H PRN PO SEVERE PAIN LEVEL 7-10 Last administered on 11/06/16 06:37; Admin Dose 2 TAB; Start at 22:00 Docusate Sodium (Colace) 100 mg Q12H PRN PO CONSTIPATION; Start 11/03/16 at 22: 00 Bisacodyl (Dulcolax) 5 mg DAILY PRN PO CONSTIPATION; Start 11/03/16 at 22:00 Famotidine (Pepcid) 20 mg Q12 PO Last administered on 11/05/16 22:15; Admin Dose 20 MG; Start 11/04/16 at 09:00 Heparin Sodium (Porcine) (Heparin (5000 Units/0.5 ml)) 5,000 unit Q12 SC Last administered on 11/05/16 08:45; Admin Dose 5,000 UNIT; Start 11/03/16 at 22:00 Valsartan (Diovan) 80 mg DAILY PO Last administered on 11/05/16 08:40; Admin Dose 80 MG; Start 11/04/16 at 09:00 Acetaminophen/ Hydrocodone Bitart ([place] (5/325)) 1 tab Q4H PRN PO PAIN Last administered on 11/04/16 00:38; Admin Dose 1 TAB; Start 11/03/16 at 22:00 Acetaminophen (Tylenol Tab) 650 mg Q6H PRN PO PAIN AND OR ELEVATED TEMP; Start 11/03/16 at 22:00 Zolpidem Tartrate (Ambien) 5 mg HS PRN PO INSOMNIA Last administered on 23:41; Admin Dose 5 MG; Start 11/03/16 at 22:00 Atorvastatin Calcium (Lipitor) 20 mg HS PO ; Start 11/04/16 at 21:00 Patient Own Medication 1 ea DAILY PO Last administered on 11/05/16 08:40; Admin Dose 1 EA; Start 11/05/16 at 09:00 Ondansetron HCl (Zofran Inj) 4 mg Q6H PRN IV NAUSEA AND/OR VOMITING Last administered on 11/06/16 06:32; Admin Dose 4 MG; Start 11/06/16 at 06:30 Linezolid (Zyvox) 600 mg BID PO ; Start 11/06/16 at 09:00 BE SERNA PA-C Nov 06, 2016 07:45
--- NOTE | 2016-11-06 07:53 | PDOCDIS ---
Discharge Instructions DIAGNOSIS Discharge Diagnosis Right knee cellulitis status post right total knee arthroplasty CONDITION Patient Condition: Stable HOME CARE INSTRUCTIONS: Diet Instructions: Regular ACTIVITY: Activity Restrictions: Slowly Increase Activity Rest between Activity Avoid heavy lifting No Sexual Activity Do not Drive Do not operate Machinery Do not operate Power Tool Avoid Heavy Housework Keep Limb Elevated (With ice modalities.) Weight Bearing (As tolerated with front wheeled walker) Bathing Restrictions: Shower (Using Tegaderm with pad that was provided on discharge from first inpatient visit. Continue same instructions given in regards to Tegaderm.) FOLLOW UP/APPOINTMENTS Follow-up Plan Within 1 week from discharge from hospital in outpatient clinic with BE iVllanueva PA-C Nov 06, 2016 07:52
[2016-11-06] MEDS: MYRBETRIC 50 MG PO SCH (08:31)
[2016-11-06] MEDS: FAMOTIDINE 20 MG TAB PO SCH (08:31)
[2016-11-06] MEDS: VALSARTAN 80 MG TAB PO SCH (08:32)
[2016-11-06] MEDS: HEPARIN 5,000 UNIT/0.5 ML VIAL SC SCH (08:33)
[2016-11-06] MEDS ORDERED: ZYVOX 600 MG TAB PO SCH (09:00)
--- NOTE | 2016-11-06 09:50 | PN ---
Date/Time of Note Date/Time of Note DATE: 11/06/16 TIME: 09:42 Assessment/Plan VTE Prophylaxis VTE Prophylaxis Intervention: ambulation Lines/Catheters IV Catheter Type (from Nrs): Sal[place] Assessment/Plan Chief Complaint/Hosp Course patient discharged 10/20/2016 noted to have cellulitis 11/03/16 right knee area. Problems: Assessment/Plan patien area of cellulitis improved will be going home with oral antibiotis as prescribed by id will continue all other pre hospilization medications will follow with her own pcp Subjective 24 Hr Interval Summary Free Text/Dictation patient seen appro. at 845 am alert feeling better and looking forward to going home today Constitutional: improved, no complaints Eyes: no complaints ENT: no complaints Respiratory: no complaints Cardiovascular: no complaints Gastrointestinal: no complaints Genitourinary: no complaints, other (urinary frequancy) Musculoskeletal: swelling (improved right knee) Skin: no complaints Neurologic: no complaints Endocrine: no complaints Lymphatic: no complaints Psychological: nl mood/affect, no complaints Immunologic: no complaints Exam/Review of Systems Vital Signs Vitals Vital Signs Date Time Temp Pulse Resp B/P Pulse Ox O2 Delivery O2 Flow Rate FiO2 11/06/16 07:19 98.6 81 18 161/76 95 11/04/16 05:21 Room Air 11/03/16 20:39 2.0 Intake and Output 11/05/16 11/05/16 11/06/16 15:00 23:00 07:00 Intake Total 910 ml 240 ml Output Total 300 ml 400 ml Balance 610 ml -160 ml Exam Neck: supple Respiratory: clear to auscultation Cardiovascular: regular rate and rhythm Gastrointestinal: soft Neurological: CLINIC MANAGER II-XII intact, nl mental status, nl speech, nl strength Results Result Diagram: 11/06/16 0457 11/06/16 0524 Results 24 hrs Laboratory Tests Test 11/06/16 04:57 11/06/16 05:24 White Blood Count 10.5 Red Blood Count 3.50 L Hemoglobin 9.6 L Hematocrit 29.9 L Mean Corpuscular Volume 85.4 Mean Corpuscular Hemoglobin 27.4 L Mean Corpuscular Hemoglobin Concent 32.1 Red Cell Distribution Width 15.5 H Platelet Count 293 Mean Platelet Volume 11.7 H Neutrophils % 61.0 Lymphocytes % 22.5 Monocytes % 11.4 H Eosinophils % 4.0 Basophils % 0.5 Nucleated Red Blood Cells % 0.0 Neutrophils # 6.4 Lymphocytes # 2.4 Monocytes # 1.2 H Eosinophils # 0.4 Basophils # 0.1 Nucleated Red Blood Cells # 0.0 Sodium Level 135 Potassium Level 4.2 Chloride Level 105 Carbon Dioxide Level 24 Anion Gap 10 Blood Urea Nitrogen 14 Creatinine 0.91 Glucose Level 101 Calcium Level 9.2 Medications Medications Current Medications Acetaminophen/ Hydrocodone Bitart ([place] (5/325)) 1 tab Q6H PRN PO MODERATE PAIN LEVEL 4-6 Last administered on 11/05/16 08:48; Admin Dose 1 TAB; Start at 22:00 Acetaminophen/ Hydrocodone Bitart ([place] (5/325)) 2 tab Q6H PRN PO SEVERE PAIN LEVEL 7-10 Last administered on 11/06/16 06:37; Admin Dose 2 TAB; Start at 22:00 Docusate Sodium (Colace) 100 mg Q12H PRN PO CONSTIPATION; Start 11/03/16 at 22: 00 Bisacodyl (Dulcolax) 5 mg DAILY PRN PO CONSTIPATION; Start 11/03/16 at 22:00 Famotidine (Pepcid) 20 mg Q12 PO Last administered on 11/06/16 08:31; Admin Dose 20 MG; Start 11/04/16 at 09:00 Heparin Sodium (Porcine) (Heparin (5000 Units/0.5 ml)) 5,000 unit Q12 SC Last administered on 11/05/16 08:45; Admin Dose 5,000 UNIT; Start 11/03/16 at 22:00 Valsartan (Diovan) 80 mg DAILY PO Last administered on 11/06/16 08:32; Admin Dose 80 MG; Start 11/04/16 at 09:00 Acetaminophen/ Hydrocodone Bitart ([place] (5/325)) 1 tab Q4H PRN PO PAIN Last administered on 11/04/16 00:38; Admin Dose 1 TAB; Start 11/03/16 at 22:00 Acetaminophen (Tylenol Tab) 650 mg Q6H PRN PO PAIN AND OR ELEVATED TEMP; Start 11/03/16 at 22:00 Zolpidem Tartrate (Ambien) 5 mg HS PRN PO INSOMNIA Last administered on 23:41; Admin Dose 5 MG; Start 11/03/16 at 22:00 Atorvastatin Calcium (Lipitor) 20 mg HS PO ; Start 11/04/16 at 21:00 Patient Own Medication 1 ea DAILY PO Last administered on 11/06/16 08:31; Admin Dose 1 EA; Start 11/05/16 at 09:00 Ondansetron HCl (Zofran Inj) 4 mg Q6H PRN IV NAUSEA AND/OR VOMITING Last administered on 11/06/16 06:32; Admin Dose 4 MG; Start 11/06/16 at 06:30 Linezolid (Zyvox) 600 mg BID PO Last administered on 11/06/16 08:32; Admin Dose 600 MG; Start 11/06/16 at 09:00 EDY POWERS MD Nov 06, 2016 09:50
--- NOTE | 2016-11-06 10:03 | DS ---
Date/Time of Note Date/Time of Note DATE: 11/06/16 TIME: 09:59 Discharge Summary Admission/Discharge Info Admit Date/Time Nov 03, 2016 at 17:39 Discharge Date/Time November 06, 2016 Discharge Diagnosis Right knee cellulitis status post right total knee arthroplasty Hx of Present Illness This is an admission note for patient Dimple Nunez. 76-year-old female status post right total knee replacement on 10/27/2016. Patient was discharged on 2016. Patient was doing well after discharge from the hospital and then in the oncoming days she began noticing redness to the right knee. Patient denied any fever or complaints while she was outpatient. Called into the office due to concern of redness. Initially, patient was advised to follow-up early in office for evaluation but she felt that the redness was not as serious. It was advised that she send a picture at the minimum so that observation of wound can be seen. After picture was sent, Dr. Leo requested prescription for doxycycline 100 mg twice daily to be sent and also discussed directly with patient to follow-up in office. Patient did follow-up in office on 11/03/2016. Patient also had complaints of constipation while taking pain medication postoperatively. Patient states that she got in touch with her primary care provider, who sent a prescription for laxative, that she did not recall the name of, which then caused frequent diarrhea. Patient had ongoing diarrhea to the point where she felt she was dehydrated. Patient has shortness of breath. Denies any chest pain or tightness on medical evaluation on 11/03/2016. After full evaluation in outpatient office and ongoing erythema to the knee with increased temperature to the knee, Dr. Leo decided that patient needed to be readmitted for close monitoring as well as IV antibiotics to prevent cellulitis/infection to the right knee status post surgery. Patient had no increased pain to the right knee but was concerned about growing erythema surrounding knee. Patient presented to emergency room and arrangement with internal medicine/Dr. Nava was achieved. Patient was then admitted to the hospital for close monitoring. Hospital Course 76-year-old female who was admitted for ongoing monitoring regarding right knee cellulitis status post right total knee arthroplasty on 10/27/2016. On first day after admitting date, patient was started on IV vancomycin and doxycycline. Consultation with infectious disease doctor, Michael Schuster was obtained who continued antibiotic regimen of doxycycline with vancomycin. Patient continues to do well and erythema surrounding the right knee improved. Patient also was up and out of bed and walking. On 12/05/2016 patient continued with IV antibiotics. Dr. Schuster advised to discontinue vancomycin/doxycycline antibiotic regimen upon discharge and start Linezolid on an outpatient basis when she is discharged. White blood cell count continued to be stable around 10. Patient did experience pain with stiffness while in hospital. Physical therapy was performed on patient. On 12/06/2016 patient continued to do well with improved erythema to the knee. Given the okay by infectious disease the patient may return home. Patient was also given the okay by internal medicine, Dr. Hernadez for discharge from the hospital. Patient discharged home from hospital. Reinforced precautions status post total knee arthroplasty. Continue with Linezolid as prescribed by Dr. Schuster. Patient was also advised to follow-up within 1 week after discharge for ongoing monitoring and repeat evaluation. We will continue with home health from that point. Continue with DVT prophylaxis which was reinforced with patient. Home Meds Reported Medications Valsartan* (Diovan*) 80 Mg Tablet, 80 MG PO DAILY, TAB 10/27/16 Mirabegron (Myrbetriq) 50 Mg Tab.er.24h, 1 MG PO DAILY, TAB 10/27/16 Discontinued Reported Medications Atorvastatin (Atorvastatin) 10 Mg Tablet, 10 MG PO QHS, #30 TAB 10/27/16 Follow-up Plan Follow-up within 1 week of discharge from hospital. Primary Care Provider Harlan Leo MD Pending Labs Laboratory Tests Test 11/06/16 04:57 11/06/16 05:24 White Blood Count 10.510^3/ul (4.8-10.8) Red Blood Count 3.5010^6/ul (4.20-5.40) Hemoglobin 9.6g/dl (12.0-16.0) Hematocrit 29.9% (37.0-47.0) Mean Corpuscular Volume 85.4fl (82.0-101.0) Mean Corpuscular Hemoglobin 27.4pg (29.0-33.0) Mean Corpuscular Hemoglobin Concent 32.1g/dl (32.0-37.0) Red Cell Distribution Width 15.5% (11.5-14.5) Platelet Count 42771^3/UL (140-415) Mean Platelet Volume 11.7fl (7.4-10.4) Neutrophils % 61.0% (39.0-77.0) Lymphocytes % 22.5% (15.0-51.0) Monocytes % 11.4% (0.0-11.0) Eosinophils % 4.0% (0.0-7.0) Basophils % 0.5% (0.0-2.0) Nucleated Red Blood Cells % 0.0/100WBC (0.0-0.0) Neutrophils # 6.410^3/ul (1.6-7.5) Lymphocytes # 2.410^3/ul (0.8-2.9) Monocytes # 1.210^3/ul (0.3-0.9) Eosinophils # 0.410^3/ul (0.0-0.5) Basophils # 0.110^3/ul (0.0-0.1) Nucleated Red Blood Cells # 0.010^3/ul (0.0-0.0) Sodium Level 135mmol/L (135-144) Potassium Level 4.2mmol/L (3.5-5.1) Chloride Level 105mmol/L (97-110) Carbon Dioxide Level 24mmol/L (21-31) Anion Gap 10 (8-16) Blood Urea Nitrogen 14mg/dl (7-20) Creatinine 0.91mg/dl (0.44-1.00) Glucose Level 101mg/dl (70-220) Calcium Level 9.2mg/dl (8.4-10.2) BE SERNA PA-C Nov 06, 2016 10:03
== END 2016-11-06 12:10 | disposition home health service (06) | DRG 863 ==
LOC: E/R 16:57 → MS2 17:39
PROVIDERS: ADMIT Internal Medicine; ATTEND Internal Medicine
DX: T81.4XXA Infection following a procedure, initial encounter (principal); L03.115 Cellulitis of right lower limb; N32.81 Overactive bladder; L54 Erythema in diseases classified elsewhere; I10 Essential (primary) hypertension; E78.5 Hyperlipidemia, unspecified; Z96.651 Presence of right artificial knee joint; Y83.8 Other surgical procedures as the cause of abnormal reaction of the patient, or of later complication, without mention of misadventure at the time of the procedure; Y92.019 Unspecified place in single-family (private) house as the place of occurrence of the external cause; Z87.891 Personal history of nicotine dependence
CPT/HCPCS: 80048; 80053; 83735; 85025; 87040; 87070; 87081; 93971; 96365; 96366; 96375; 97116; 97162; 97530; J1170; J1644; J2405; J2543; J3370; J7030; J7120

== ENCOUNTER → 2016-11-03 | Outpatient (CLI) | payer MEDICARE, OTHER ==
[~2016-11-03] MED LIST changes: +ATOR10TA65 PO; -BACITRACIN 50000 UNITS INJ IRR ONE; -BUPIVACAINE 0.25%/EPI (SDV) 30 ML INJ INJ ONE; -METHYLENE BLUE 1% 10 ML INJ TOP ONE; +MIRA50TA PO; -POLYMYXIN B 500000 UNIT INJ IRR ONE; -ROPIVACAINE 0.2% 100ML BAG INJ ONE; -TOBRAMYCIN 1.2 GM POWDER TOP ONE; -VALS40TA2 PO; +VALS80TA2 PO; -VANCOMYCIN 1 GM INJ IRR ONE
--- NOTE | 2016-11-03 16:33 | PN ---
Date/Time of Note Date/Time of Note DATE: 11/03/16 TIME: 16:20 Outpatient Progress Note Chief Complaint Follow-up wound check HPI 76-year-old female presents today for follow-up status post right total knee replacement on 10/27/2016. Patient was discharged from the hospital on 2016. Patient began developing increased redness to the right knee but denies any increase in pain. Her average pain is a 5-6/10 on the pain scale. Patient denies any fever. Patient also suffered significant constipation while taking pain medications postoperatively. Patient got in touch with her family practitioner who prescribed a stool softener (that she does not recall the name of) and since then patient has been having frequent diarrhea. Patient has also been having shortness of breath. Denies any chest pain or tightness. Denies any calf pain. Patient called into the office yesterday morning/afternoon to discuss the redness to the knee. It was recommended, that patient follow-up in office for evaluation but at the time, she felt that it may not be necessary. Patient was advised to at least send in a picture so that we may review to see if there is anything of significant concern. Patient did send picture and as a result, Dr. Leo recommended doxycycline 100 mg twice daily be called into the pharmacy. 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 Patient called in today to set up appointment to be seen today. Continues with symptoms of dehydration. No increase in pain. No drainage or discharge from the knee but there is continued erythema, that patient states has improved since yesterday but continues with increased temperature to the right knee. Review of Systems Const: No Fever, no chills, + Fatigue, normal appetite, no diaphoresis. Resp: +SOB, no wheezing, no chest pain. CV: No chest pain, no palpitaions, no LY. GI: + Diarrhea. No constipation. No abdominal pain. Physical Exam Blood pressure is 97/49, temperature is 97.6, pulse is 83, respiratory rate is 12, weight is 176 pounds, height is 5 foot 6 inches General Appearance: in moderate distress, Dehydrated. Right knee: Erythema to the right knee on inspection. [place] are intact. Surgical wound is clean dry and intact but erythema to the wound. No discharge. No significant tenderness to palpation. Normal sensory examination to light touch. There is deroofed blister proximal to the surgical wound. Patient is able to flex up to 90 with about 10 lag from full extension. Patient is able to ambulate using front wheeled walker. No calf pain on examination. Allergies Coded Allergies: sulfamethoxazole (Verified Allergy, Intermediate, n/v, 10/27/16) trimethoprim (Verified Allergy, Intermediate, n/v, 10/27/16) Sulfa (Sulfonamide Antibiotics) (Verified Allergy, Unknown, 10/27/16) Assessment/Plan * Lengthy discussion and evaluation with patient had today. Dr. Leo was present throughout examination. * Dr. Hernadez was notified as this was the external grinder that was monitoring patient during recent hospital stay and after discussion between Dr. Leo and Dr. Hernadez, patient will present to emergency room at [facility] for immediate consult and subsequent admission to the hospital such that she may be monitored for a couple of days. Dr. Hernadez has also confirms that Dr. Nava is applications support analyst today and is notified Dr. Nava of patient presenting to the emergency room. I have also discussed directly this case with Dr. Nava and he is aware the patient will be presented to the emergency room. * Emergency room was contacted and charge nurse, Mary Ellen, was spoken to directly regarding this patient. Charge nurse is aware that preliminary labs, initiation of IV fluid for dehydration and IV antibiotics will be performed. * Patient has elected to present to hospital via her traffic assistant Turner who is in exam room. All instructions were provided to the patient's traffic assistant. Dietary Cook will take patient directly to the emergency room with no stops. Identifying information in regards to medical record number, date of and patient's name was provided for patient's traffic assistant. * Will continue monitoring at [facility] with internal medicine. Dr. Hernadez states that he will follow up on patient tomorrow morning when he is in the hospital. Dr. Nava will evaluate today. Dr. Leo was present for examination and agrees with plan. Medications Home Meds Reported Medications Valsartan* (Diovan*) 80 Mg Tablet, 80 MG PO DAILY, TAB 10/27/16 Atorvastatin (Atorvastatin) 10 Mg Tablet, 10 MG PO QHS, #30 TAB 10/27/16 Mirabegron (Myrbetriq) 50 Mg Tab.er.24h, 1 MG PO DAILY, TAB 10/27/16 Discontinued Reported Medications Valsartan* (Diovan*) 40 Mg Tablet, 25 MG PO DAILY 1/2 tab 04/26/13 BE SERNA PA-C Nov 03, 2016 16:33
== END | disposition home or self-care (01) ==
LOC: HKI 15:02
DX: Z47.1 Aftercare following joint replacement surgery (principal); Z96.641 Presence of right artificial hip joint; M25.561 Pain in right knee; R06.02 Shortness of breath; K59.00 Constipation, unspecified; Z88.2 Allergy status to sulfonamides

== ENCOUNTER → 2016-11-11 | Outpatient (CLI) | payer MEDICARE, OTHER ==
[~2016-11-11] MED LIST changes: -ATOR10TA65 PO
--- NOTE | 2016-11-11 15:05 | PN ---
Date/Time of Note Date/Time of Note DATE: 11/11/16 TIME: 15:01 Outpatient Progress Note Chief Complaint Wound check HPI 76-year-old female presents today for wound check 1 week status post discharge after readmission for cellulitis to the right knee. She is status post total knee replacement on 10/27/2016. Since being discharged from the hospital about a week ago, she denies any complications. She continues with Linezolid and erythema surrounding the wound continues to improve. Continues with aches and pains of the right knee status post surgery. Having stiffness with flexion. Denies any calf pain, chest pain/tightness or shortness of breath. Uses single- point cane for assisted ambulation. Denies any falls or complications since discharge from the hospital. Review of Systems Const: No Fever, no chills, no Fatigue, normal appetite, no diaphoresis. Resp: No SOB, no wheezing, no chest pain. CV: No chest pain, no palpitaions, no LY. Physical Exam 116/53 as the blood pressure, temperature is 97.8, pulse is 79, respiratory rate is 14, height is 5 foot 6 inches, weight is 176 pounds General Appearance: well-developed, well-nourished, in no acute distress. Right knee: Significant improvement in erythema to the right knee since she was last seen. Mild discomfort/tenderness to palpation to the right knee on exam. No calf pain/negative Homans sign. Patient is flexing up to about 100 and extending with about 10-15 lag from full extension. Normal sensory examination to light touch. Haylee are intact. Wound looks clean dry and intact. Allergies Coded Allergies: sulfamethoxazole (Verified Allergy, Intermediate, n/v, 11/03/16) trimethoprim (Verified Allergy, Intermediate, n/v, 11/03/16) Sulfa (Sulfonamide Antibiotics) (Verified Allergy, Unknown, 11/03/16) Family Hx Patient History: Coronary arteriosclerosis Assessment/Plan * Staple removal with application of Steri-Strips performed today. Wound care instructions discussed. * Patient also had complaints of numbness and shooting pains from the back. Patient was advised to follow-up with her primary as she may need ongoing consult with a product development specialist. Future consideration may be MRI as well. * Continue with antibiotics provided by Dr. Schuster after infectious disease consult. * Prescription for Celebrex 100 mg 1 tab p.o. twice daily #60 tablets also provided today for anti-inflammatory effect. Patient was made aware however that she does have a history of sulfa allergy and there may be cross-reactivity/ symptoms. Patient states that she is taking Celebrex in the past without issue. It was still advised that should she experience any side effects, discontinue medication immediately and she states understanding. * Follow-up 1 week for repeat wound check. Continue with ice modalities as well. Medications Home Meds Reported Medications Valsartan* (Diovan*) 80 Mg Tablet, 80 MG PO DAILY, TAB 10/27/16 Mirabegron (Myrbetriq) 50 Mg Tab.er.24h, 1 MG PO DAILY, TAB 10/27/16 BE SERNA PA-C Nov 11, 2016 15:05
== END | disposition home or self-care (01) ==
LOC: HKI 13:51
DX: Z47.1 Aftercare following joint replacement surgery (principal); Z96.651 Presence of right artificial knee joint; L03.115 Cellulitis of right lower limb; Z88.2 Allergy status to sulfonamides; M54.9 Dorsalgia, unspecified

== ENCOUNTER → 2016-11-17 | Outpatient (CLI) | payer MEDICARE, OTHER ==
--- NOTE | 2016-11-17 15:10 | PN ---
Date/Time of Note Date/Time of Note DATE: 11/17/16 TIME: 15:04 Outpatient Progress Note Chief Complaint 3 weeks status post right total knee arthroplasty HPI 76-year-old female presents today for three-week postoperative appointment status post right total knee arthroplasty. Upon 1-2 days after discharge she began experiencing symptoms of cellulitis which patient was readmitted to the hospital. Patient was seen by infectious disease for consult while she was an inpatient in which white blood cell count as well as erythema surrounding the right knee continue to improve. She was discharged on Linezolid antibiotics which she has recently completed. She states that there is been significant improvement in erythema to the knee. Was seen by drapery and upholstery estimator yesterday and labs were drawn. In regards to the right knee she continues to experience pain, typically with activity. She denies any falls or injury. Denies any calf pain/ chest pain/chest tightness. Patient states that she continues to improve in regards to functionality. Review of Systems Const: No Fever, no chills, no Fatigue, normal appetite, no diaphoresis. Resp: No SOB, no wheezing, no chest pain. CV: No chest pain, no palpitaions, no LY. Physical Exam Blood pressure is 127/56, temperature is 98.1, pulse is 81, respiratory rate is 12, height is 5 foot 6 inches, weight is 176 pounds General Appearance: well-developed, well-nourished, in no acute distress. Right knee: Significant improvement in regards to erythema since wound check was performed last week. Warm to the touch of the right knee but when the left knee is palpated there is slight increase in temperature in comparison. Patient is able to flex up to 110 today. She does have aches primarily to the posterior knee. Using 3 point cane for assisted ambulation. Slight limp with ambulation. She does state however, her pain continues to improve. Allergies Coded Allergies: sulfamethoxazole (Verified Allergy, Intermediate, n/v, 11/03/16) trimethoprim (Verified Allergy, Intermediate, n/v, 11/03/16) Sulfa (Sulfonamide Antibiotics) (Verified Allergy, Unknown, 11/03/16) Family Hx Patient History: Coronary arteriosclerosis Assessment/Plan -Wound healing well after staple removal. Previous cellulitis does not appear to be no longer present. -Continue ASA 325 mg twice daily for DVT prophylaxis until 6 weeks status post surgery. -No signs of DVT. -Patient progressing well. -Follow-up at 6 week postop appointment. X-rays will be performed at 6 weeks postoperative appointment. -Patient made aware that they may follow-up sooner, should they experience any issues or complications as we will be glad to see them. -Continue with physical therapy -Patient states that she is in less need of pain medication. It was advised however that patient ensure that she takes pain medication prior to initiation of physical therapy so that she is able to perform to the maximum of her ability. -She has been having nausea so she has been breaking her pain tablet in half. Primary care provider is also provided her with Zofran. She states that Zofran has been helping. -Follow-up in 3 weeks Medications Home Meds Reported Medications Valsartan* (Diovan*) 80 Mg Tablet, 80 MG PO DAILY, TAB 10/27/16 Mirabegron (Myrbetriq) 50 Mg Tab.er.24h, 1 MG PO DAILY, TAB 10/27/16 BE SERNA PA-C Nov 17, 2016 15:09
== END | disposition home or self-care (01) ==
LOC: HKI 14:06
DX: Z47.1 Aftercare following joint replacement surgery (principal); Z96.651 Presence of right artificial knee joint

== ENCOUNTER → 2016-11-26 | Outpatient (CLI) | payer MEDICARE, OTHER ==
--- NOTE | 2016-11-26 15:06 | PN ---
Date/Time of Note Date/Time of Note DATE: 11/26/16 TIME: 15:01 Outpatient Progress Note Chief Complaint Wound check HPI 76-year-old female resents today for follow-up wound check status post right knee cellulitis that occurred after knee replacement that was performed on 2016. Patient states that erythema has significantly improved. She did call earlier this week stating that wound looked a little "pink" but denies any associated pain or discharge. It was advised that patient follow-up earlier in the week but she states that it was mild and did not think that it was any significant concern and decided to keep appointment she had today. She also stated that [place] pain medication the 5/325 mg dose was too strong as she was getting significant nausea. Patient wanted to go to tramadol 50 mg. Since starting tramadol she is taking about 3-4 tablets a day. Tramadol is controlling pain, per patient account. She is just finished home physical therapy and will be scheduling outpatient physical therapy to the knee. She continues with stiffness that she states is primarily to the lateral and posterior compartment of the knee. Denies any calf pain, chest pain/tightness or shortness of breath. Denies any falls or injury but continues to use 3 point cane. Review of Systems Const: No Fever, no chills, no Fatigue, normal appetite, no diaphoresis. Resp: No SOB, no wheezing, no chest pain. CV: No chest pain, no palpitaions, no LY. Physical Exam Blood pressure is 133/71, temperature is 98.1, pulse is 82, respiratory rate is 12, height is 5 foot 6 inches, weight is 176 pounds General Appearance: well-developed, well-nourished, in no acute distress. Right knee: Subtle erythema with no signs of infection or ongoing cellulitis to the right knee. Patient is able to flex up to 108 with extension with about 10 lag from full extension. No tenderness to palpation on exam today. Patient has numbness to the lateral compartment of the knee. Slight limp with ambulation and she is using 3 point cane for assisted ambulation. When asked to walk independently, she is able to perform but feels that the knee is stiff and weak. No calf pain with weightbearing. Negative Homans sign. Allergies Coded Allergies: sulfamethoxazole (Verified Allergy, Intermediate, n/v, 11/03/16) trimethoprim (Verified Allergy, Intermediate, n/v, 11/03/16) Sulfa (Sulfonamide Antibiotics) (Verified Allergy, Unknown, 11/03/16) Family Hx Patient History: Coronary arteriosclerosis Assessment/Plan * No signs of cellulitis. * Continue with tramadol 50 mg as needed for pain. Patient was advised to take pain medication before initiating physical therapy and as needed. * Patient had complaints of possible spasm to the right buttock region. No palpable spasm on exam today. Patient has no complaints/pain of spasm currently. Warm compress to the area as well as stretching recommended for spasm. Anti-inflammatories as needed as well. * Antibiotic prophylaxis discussed today. * Follow-up 2 weeks for repeat evaluation/6 week follow-up. X-rays will be performed on follow-up. Patient was advised to follow-up sooner or call into the office that she experience any complaints or concern. Medications Home Meds Reported Medications Valsartan* (Diovan*) 80 Mg Tablet, 80 MG PO DAILY, TAB 10/27/16 Mirabegron (Myrbetriq) 50 Mg Tab.er.24h, 1 MG PO DAILY, TAB 10/27/16 BE SERNA PA-C Nov 26, 2016 15:06
== END | disposition home or self-care (01) ==
LOC: HKI 14:37
DX: Z47.1 Aftercare following joint replacement surgery (principal); Z96.651 Presence of right artificial knee joint; L03.115 Cellulitis of right lower limb; Z88.2 Allergy status to sulfonamides

== ENCOUNTER → 2016-12-10 | Outpatient (CLI) | payer MEDICARE, OTHER ==
--- NOTE | 2016-12-10 14:16 | PN ---
Date/Time of Note Date/Time of Note DATE: 12/10/16 TIME: 14:12 Outpatient Progress Note Chief Complaint 6 weeks status post right total knee replacement HPI 76-year-old female presents today for evaluation 6 week postoperative appointment status post right total knee arthroplasty. Patient was readmitted into the hospital couple days after discharge for suspected cellulitis. Consult with infectious disease and was placed on prophylactic antibiotics. Wound continues to heal and progress after antibiotic regimen. Was recently seen by retort loader who feels that patient should return for repeat evaluation to determine if there is ongoing infection. Patient is distraught on exam today. When asked, she denies any pain to the right knee. Patient does state that her gait has improved but is concerned of ongoing mild erythema. She states that after physical therapy and activity she notices increased redness and increased temperature. She also experienced this pain and aches at night after a full day of activity. Denies any fever but states that she has had off and on chills for the past couple of weeks. Patient states that 3 weeks ago there was a time where she woke up and she was drenched in sweat. Would like to speak with Dr. Leo regarding concern of right knee. Review of Systems Const: No Fever, no chills, no Fatigue, normal appetite, no diaphoresis. Resp: No SOB, no wheezing, no chest pain. CV: No chest pain, no palpitaions, no LY. Physical Exam Blood pressure is 146/66, temperature is 98.3, pulse is 90, respiratory rate is 12, height is 5 foot 6 inches, weight is 176 pounds General Appearance: well-developed, well-nourished, in mild to moderate distress. Right knee: Mild erythema to the right knee that is blanchable. No tenderness to palpation. Patient is flexing up to 120. No pain with range of motion. Using single-point cane for assisted ambulation. Increased temperature to palpation mildly when compared to the nonoperative side. Calf pain on palpation. Imaging: X-ray of the right knee performed on 12/10/2016 showing all components appearing well aligned, attached and integrated to the bone. No signs of any lucency between metal and bone. Allergies Coded Allergies: sulfamethoxazole (Verified Allergy, Intermediate, n/v, 11/03/16) trimethoprim (Verified Allergy, Intermediate, n/v, 11/03/16) Sulfa (Sulfonamide Antibiotics) (Verified Allergy, Unknown, 11/03/16) Family Hx Patient History: Coronary arteriosclerosis Assessment/Plan * Venous Doppler prescription provided for patient today. Facility also called and will be arranging for patient to be seen as soon as possible for rule out of DVT. Patient feels a test is not necessary as she thinks that it is not a DVT but she was strongly advised to have test performed given the extent of calf pain that she is having on examination today. Should patient experience any severe complaints such as shortness of breath, chest pain/tightness she was advised to follow-up in emergency room immediately and she states understanding. Important to note the patient states that she stopped taking her aspirin 325 mg and has not been consistent with the therapy within the first 6 weeks. * Joint aspiration performed by Dr. Leo. Labs were also ordered. Patient will have CBC, ESR, CRP, culture and sensitivity, aerobic and anaerobic as well as cell count performed. Low suspicion of infection based off of examination and initial inspection of fluid. No fever. * Continue with pain medications as needed. May take lower dose as she states that she can get increased drowsiness and nausea with pain medications if they are too strong. * Follow-up after lab testing. Dr. Leo was present for exam today and agrees with plan. Medications Home Meds Reported Medications Valsartan* (Diovan*) 80 Mg Tablet, 80 MG PO DAILY, TAB 10/27/16 Mirabegron (Myrbetriq) 50 Mg Tab.er.24h, 1 MG PO DAILY, TAB 10/27/16 BE SERNA PA-C Dec 10, 2016 14:16
--- NOTE | 2016-12-10 17:06 | RADRPT ---
PROCEDURE: Right knee radiographs. CLINICAL INDICATION: Right knee pain. Postop. TECHNIQUE: Three views. Weight bearing. Frontal, lateral, and patellar view. COMPARISON: 10/27/2016 FINDINGS: There is no fracture or dislocation. Anterior skin cristina and surgical drains have been removed. 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 There is no lytic or blastic lesion. There is no joint effusion. IMPRESSION: 1. Satisfactory postoperative appearance of the right knee. RPTAT: QQ .Galdino Scott MD, MD Date Time Electronically viewed and signed by .Galdino Scott MD, MD on 12/10/2016 17:06 .R/
== END | disposition home or self-care (01) ==
LOC: HKI 13:25
DX: Z47.1 Aftercare following joint replacement surgery (principal); Z96.651 Presence of right artificial knee joint

== ENCOUNTER → 2016-12-15 | Outpatient (CLI) | payer MEDICARE, OTHER ==
--- NOTE | 2016-12-15 14:30 | PN ---
Date/Time of Note Date/Time of Note DATE: 12/15/16 TIME: 14:25 Outpatient Progress Note Chief Complaint One-week follow-up for lab results and repeat evaluation. HPI 76-year-old female 7 weeks postop right total knee replacement on 10/27/2016 presents today for one-week follow-up after lab draw. Patient had concern and wanted to rule out infection. Denies any pain to the right knee. Patient actually states that pain and symptoms have improved. Episodes of chills and night sweats have significantly decreased that she is only had one episode last week with no repeat episodes. Denies any fever. Denies any pain to the right knee. Denies any discharge presentation. Wound continues to heal well. No falls or injury. Patient states that she is very pleased status post surgery. She is not using an assistive ambulatory device today. Review of Systems Const: No Fever, no chills, no Fatigue, normal appetite, no diaphoresis. Resp: No SOB, no wheezing, no chest pain. CV: No chest pain, no palpitaions, no LY. Physical Exam Height 5 foot 6 inches, weight is 176 pounds General Appearance: well-developed, well-nourished, in no acute distress. Right knee: Surgical wound is healing well with good scarring. There continues to be one small region about 1-2 mm that is still epithelializing. No signs of infection. Patient is able to fully extend the right knee today. Patient is able to passively flex up to 110-115. No pain with range of motion today. Walking independently today. Tingling sensation to the lateral compartment of the knee which has improved from numbness last week. 5/5 strength on resistance. Toes freely movable. Negative Homans sign. Imaging X-ray of the right knee performed on 12/10/2016 showing all components appearing well aligned, attached and integrated to the bone. No signs of any lucency between metal and bone. Lab results: Lab results are showing normal sed rate and CRP. Normal white blood cell count. Normal red blood cell count. Aerobic and anaerobic culture of synovial fluid aspirated last week showing negative results for any growth of bacteria. Dr. Leo is reviewed results as well. Allergies Coded Allergies: sulfamethoxazole (Verified Allergy, Intermediate, n/v, 11/03/16) trimethoprim (Verified Allergy, Intermediate, n/v, 11/03/16) Sulfa (Sulfonamide Antibiotics) (Verified Allergy, Unknown, 11/03/16) Family Hx Patient History: Coronary arteriosclerosis Assessment/Plan -Patient progressing well -Surgical wound continues to heal well. -No signs of infection or DVT on exam. -Lab results are negative for indicative infection. -X-rays showing no abnormalities in regards to prosthesis attachment to bone. -Range of motion is improved status post total knee replacement. -Antibiotic prophylaxis card provided today. -Follow-up 6 months status post surgery. If patient is doing well at that time , possible follow-up on as-needed basis from that point. Dental prophylaxis discussed in detail today. Patient given prophylaxis card with antibiotic options. Should patient have allergy to specific medication ( eg penicillin) alternative options are also provided on the card. Patient is aware that antibiotics should be taken prior to any procedures to prevent increased risk of infection to the joint. Patient is aware that this will be for the rest of their life. Patient states understanding and compliance. Dr. Leo was present for examination and agrees with plan. Medications Home Meds Reported Medications Valsartan* (Diovan*) 80 Mg Tablet, 80 MG PO DAILY, TAB 10/27/16 Mirabegron (Myrbetriq) 50 Mg Tab.er.24h, 1 MG PO DAILY, TAB 10/27/16 BE SERNA PA-C Dec 15, 2016 14:30
== END | disposition home or self-care (01) ==
LOC: HKI 13:42
DX: Z47.89 Encounter for other orthopedic aftercare (principal); Z96.651 Presence of right artificial knee joint

== ENCOUNTER → 2017-08-11 | Outpatient (CLI) | END | disposition home or self-care (01) ==